=== PATIENT | male | born 1955 | race Caucasian/White ===

== ENCOUNTER 2016-09-28 15:53 | Inpatient (IN) | payer OTHER ==
[~2016-09-28] VITALS: Ht 182.9 cm; Wt 107.7 kg
[~2016-09-28 15:53] MED LIST: /MOXI40TA OR; CELE100C OR; IBUPROFEN/TYLENOL; LISI10TA4 OR; ZETI10TA OR
[2016-09-28] MEDS ORDERED: ONDANSETRON 4MG/2ML VIAL (J2405) As Ordered ONE (16:41)
[2016-09-28] MEDS ORDERED: MORPHINE 4 MG/ML 1ML SYRINGE As Ordered ONE ×3 (16:41→18:38)
[2016-09-28 16:52] LABS: BASO % 0.3 % (0.0-1.0); EOS % 0.4 % (0.0-3.0); LARGE UNSTAINED CELL # 0.1 K/mm3 (0.0-0.4); LARGE UNSTAINED CELL % 1.1 % (0.0-4.0); LYMPH % 7.8 % (24.0-44.0); MEAN CORPUSCULAR HEMOGLOBIN 32.5 pg (27.0-33.0); MEAN CORPUSCULAR HGB CONC 35.5 g/dl (32.0-36.5); MEAN CORPUSCULAR VOLUME 91.6 fl (80.0-96.0); MONO # 0.5 K/mm3 (0.0-0.8); MONO % 4.3 % (0.0-5.0); NEUTROPHILS # 10.6 K/mm3 (1.8-7.7); NEUTROPHILS % 86.2 % (36.0-66.0); PLATELET COUNT, AUTOMATED 265 k/mm3 (150-450); RED CELL DISTRIBUTION WIDTH 12.1 % (11.5-14.5); WHITE BLOOD COUNT 12.3 K/mm3 (4.0-10.0)
[2016-09-28 17:04] LABS: ANION GAP 8 MEQ/L (8-16); BLOOD UREA NITROGEN 16 MG/DL (7-18); CALCIUM LEVEL 9.6 MG/DL (8.8-10.2); CARBON DIOXIDE LEVEL 26 MEQ/L (21-32); CHLORIDE LEVEL 108 MEQ/L (98-107); CREATININE FOR GFR 1.04 MG/DL (0.70-1.30); GLOMERULAR FILTRATION RATE > 60.0 (>49); GLUCOSE, FASTING 132 MG/DL (80-110); POTASSIUM SERUM 4.2 MEQ/L (3.5-5.1); SODIUM LEVEL 142 MEQ/L (136-145)
--- NOTE | 2016-09-28 17:11 | REP ---
Clinical: Trauma. Rule out pneumothorax. Technique: Single portable semiupright view. Findings: Basilar atelectasis cannot be excluded. No pneumothorax identified. Mediastinum and cardiac silhouette within normal limits. Skeletal structures are grossly intact. Impression: Cannot exclude basilar atelectasis. No obvious pneumothorax. Signed by Jake Ramírez MD 09/28/2016 05:04 P
[2016-09-28] MEDS ORDERED: ISOVUE-370 76% 100ML VIAL (Q9967) As Ordered ONE (17:15)
[2016-09-28] MEDS ORDERED: BISACODYL 10 MG SUPP PR PRN (18:30)
[2016-09-28] MEDS ORDERED: NORCO, ANEXSIA 5/325MG TABLET (HYDROcodone/ACETAMINOPHEN) PO PRN (18:30)
[2016-09-28] MEDS ORDERED: PERCOCET 5MG/325MG TAB PO PRN (18:30)
[2016-09-28] MEDS ORDERED: ACETAMINOPHEN TAB 650MG DOSE (2X325MG) PO PRN (18:30)
[2016-09-28] MEDS ORDERED: LEVALBUTEROL 1.25 MG/0.5 ML CONCENTRATE NEB NEB PRN (18:30)
[2016-09-28] MEDS ORDERED: ONDANSETRON 4MG/2ML VIAL (J2405) IV PRN ×2 (18:30→20:30)
[2016-09-28 18:49] LABS: ABG BASE EXCESS -1.1 (-2.0-2.0); ABG PARTIAL PRESSURE CO2 41.3 mmHg (35.0-45.0); ABG PARTIAL PRESSURE O2 88.6 mmHg (75.0-100.0); ABG STANDARD HCO3 23.6 MEQ/L (22.0-26.0); ABG TOTAL CO2 25.3 MEQ/L (23.0-31.0); ABG pH (ARTERIAL) 7.382 UNITS (7.350-7.450)
[2016-09-28] MEDS ORDERED: AMLO2.5T PO (18:51)
[2016-09-28] MEDS ORDERED: VITMTA PO (18:51)
[2016-09-28] MEDS ORDERED: PAXI20TA3 PO (18:51)
[2016-09-28] MEDS ORDERED: VITA500T88 PO (18:51)
[2016-09-28] MEDS ORDERED: VITA100066 PO (18:51)
[2016-09-28] MEDS ORDERED: VITA10002 PO (18:51)
[2016-09-28] MEDS ORDERED: ZETI10TA2 PO (18:51)
[2016-09-28] MEDS ORDERED: PRAV20TA2 PO (18:51)
--- NOTE | 2016-09-28 19:59 | EDDOCDS ---
Nurse's Notes [facility] Name: Alvino Chawla Age: 61 yrs Sex: Male : 1955 Arrival Date: 09/28/2016 Time: 15:53 Bed 2 Private MD: Leandro Tyson MD Diagnosis: Fall from snow-skis;Multiple fractures of ribs, left side- - Presentation: 09/28 16:01 Presenting complaint: states: [facility] [place] [facility] [place] and landed on left rs3 side. reports of Left upper chest pain. pain with breathing. Adult Sepsis Screening: The patient does not have new or worsening altered mentation. Patient's respiratory rate is less than 22. Systolic blood pressure is greater than 100. Patient has a qSOFA score of 0- Negative Sepsis Screen. Suicide/Homicide risk assessment- the patient denies having any suicidal and/or homicidal ideations and does not present with any other emotional, behavioral or mental health complaints. 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 Transition of care: patient was not received from another setting of care. 16:01 Acuity: YANDEL Level 3 rs3 16:01 Method Of Arrival: Wheelchair rs3 Triage Assessment: 16:05 General: Appears in no apparent distress. Pain: Location: anterior aspect of left upper rs3 chest. HIV screening NA for this visit Offered previously. Historical: - Allergies: no known allergies; - Home Meds: 1. Pravachol 20 mg Oral tab 1 tab once daily 2. lisinopril 10 mg Oral tab 1 tab once daily 3. Paxil Oral 1 tab once daily 4. Zetia Oral 1 tab once daily - PMHx: Hypercholesterolemia; Hypertension; - PSHx: back surgery; Hernia repair; Appendectomy; - The history from nurses notes was reviewed: and I agree with what is documented. - Social history: Smoking status: Patient states was never smoker of tobacco. No barriers to communication noted, The patient speaks fluent Kyrgyz. - : The pt / caregiver states he / she is not on anticoagulants. Home medication list is obtained from the patient. - Hospitalizations: : No recent hospitalization is reported. - Exposure Risk Screening:: None identified. - Immunization history:: All immunizations up-to-date. - Family history: Not pertinent. - Social history:: the patient is a non-smoker, the patient drinks alcohol. Screenin:40 Screening information is obtained from the patient. Fall risk: No risks identified. ck1 Assistance ADL's: requires no assistance with activities of daily living. Abuse/DV Screen: The patient / caregiver reports he/she is: not in a situation that causes fear, pain or injury. Nutritional screening: No deficits noted. home support is adequate. 16:52 Advance Directives: Currently, there is no health care proxy. ck1 Assessment: 16:39 General: Appears uncomfortable, Behavior is appropriate for age, cooperative. Pain: ck1 Location: anterior aspect of left upper chest Pain currently is 8 out of 10 on a pain scale. Neurological: Level of Consciousness is awake, alert, obeys commands, Oriented to person, place, time. Respiratory: Respiratory effort is unlabored, Respiratory pattern is regular, symmetrical. GI: Reports nausea. Derm: Skin is intact, is healthy with good turgor, Skin is diaphoretic, Skin is normal. Musculoskeletal: Circulation, motion, and sensation intact Range of motion intact in all extremities. 17:13 General: Appears in no apparent distress, comfortable, Behavior is appropriate for age, ck1 cooperative. Pain: Location: anterior aspect of left upper chest Pain currently is 3 out of 10 on a pain scale. Neurological: Level of Consciousness is awake, alert, obeys commands, Oriented to person, place, time. Cardiovascular: Rhythm is sinus rhythm. Respiratory: Respiratory effort is unlabored, Respiratory pattern is regular, symmetrical. GI: No deficits noted. Derm: Skin is pink, warm & dry. 17:50 General: Appears in no apparent distress, comfortable, Behavior is appropriate for age, ck1 cooperative. Pain: Location: anterior aspect of left upper chest Pain currently is 3 out of 10 on a pain scale. Neurological: Level of Consciousness is awake, alert, obeys commands, Oriented to person, place, time. Cardiovascular: Rhythm is sinus rhythm. Respiratory: Respiratory effort is unlabored, Respiratory pattern is regular, symmetrical. GI: No deficits noted. Derm: Skin is pink, warm & dry. Musculoskeletal: Circulation, motion, and sensation intact Range of motion intact in all extremities. 18:50 General: Appears in no apparent distress, comfortable, Behavior is appropriate for age, ck1 cooperative. Pain: Location: anterior aspect of left upper chest Pain currently is 5 out of 10 on a pain scale. Neurological: Level of Consciousness is awake, alert, obeys commands, Oriented to person, place, time. Respiratory: Respiratory effort is unlabored, Respiratory pattern is regular, symmetrical. GI: No deficits noted. Derm: Skin is pink, warm & dry. 19:35 General: Appears uncomfortable, well developed, well nourished, Behavior is appropriate jp6 for age, cooperative, Reports left chest pain, pain with deep breathing. Pain: Location: left lateral anterior chest Pain currently is 4 out of 10 on a pain scale. Neurological: Level of Consciousness is awake, alert, Oriented to person, place, time. EENT: No deficits noted. Cardiovascular: Capillary refill < 3 seconds Heart tones S1 S2 present Rhythm is sinus rhythm No ectopy. Respiratory: Airway is patent Respiratory effort is even, unlabored, shallow, Respiratory pattern is regular, symmetrical, Breath sounds are clear bilaterally. GI: No deficits noted. : No deficits noted. Derm: Skin is intact, Skin is dry, Skin is pale, Skin temperature is warm. Musculoskeletal: Circulation, motion, and sensation intact Capillary refill < 3 seconds Range of motion intact in all extremities. Vital Signs: 15:54 BP 155 / 104; Pulse 113; Resp 18 S; Temp 97.0; Pulse Ox 95% on R/A; Weight 102.06 kg dd6 (R); Height 6 ft. 0 in. (182.88 cm) (R); 16:33 BP 145 / 94 (auto/); ck1 16:34 Pulse 88 MON; Pulse Ox 93% ; ck1 16:48 BP 153 / 99 (auto/); ck1 16:48 Pulse 90 MON; Pulse Ox 92% ; ck1 17:03 BP 157 / 101 (auto/); ck1 17:04 Pulse 92 MON; Pulse Ox 95% ; ck1 17:10 Pulse 96 MON; Pulse Ox 94% ; ck1 17:11 BP 155 / 102 (auto/); ck1 17:12 BP 155 / 102; Pulse 90; Resp 18; Temp 98.2(TE); Pulse Ox 95% on 2 lpm NC; Pain 3/10; ck1 17:18 BP 154 / 100 (auto/); ck1 17:18 Pulse 92 MON; Pulse Ox 94% ; ck1 17:33 BP 187 / 108 (auto/); ck1 17:34 Pulse 80 MON; Pulse Ox 92% ; ck1 17:48 BP 157 / 94 (auto/); ck1 17:48 Pulse 86 MON; Pulse Ox 96% ; ck1 17:49 BP 157 / 94; Pulse 88; Resp 18; Temp 98.8(TE); Pulse Ox 95% on 2 lpm NC; Pain 3/10; ck1 18:03 BP 138 / 99 (auto/); ck1 18:03 Pulse 96 MON; Pulse Ox 96% ; ck1 18:18 BP 149 / 100 (auto/); ck1 18:18 Pulse 82 MON; Pulse Ox 96% ; ck1 18:33 BP 160 / 89 (auto/); ck1 18:34 Pulse 90 MON; Pulse Ox 95% ; ck1 18:48 BP 131 / 85 (auto/); ck1 18:49 Pulse 96 MON; Pulse Ox 94% ; ck1 19:18 BP 155 / 101 (auto/); jp6 19:19 Pulse 86 MON; Pulse Ox 94% ; jp6 19:19 BP 151 / 96; Pulse 84; Resp 18; Temp 98.9(TE); Pulse Ox 95% on 2 lpm NC; Pain 4/10; jp6 15:54 Body Mass Index 30.52 (102.06 kg, 182.88 cm) dd6 Vitals: 15:54 Log In Time: September 28, 2016 at 15:52. dd6 ED Course: 15:54 Patient visited by Jay Jackson PCA. dd6 15:54 Leandro Tyson is Private Physician. dd6 15:54 Patient moved to Waiting dd6 15:55 Patient moved to Pre RCE dd6 16:03 Triage Initiated rs3 16:07 Sugey Valles,RN is Primary Nurse. dls 16:07 Chloe Bello,RN is Primary Nurse. dls 16:07 Patient moved to 9 dls 16:10 Patient moved to 8 dy 16:19 Patient visited by Chloe Bello,ANA. ck1 16:24 Hany Garcia MD is Attending Physician. pc 16:35 Patient visited by Hany Garcia MD. pc 16:38 MED Profile Sent. ck1 16:38 CBC with Diff Sent. ck1 16:39 The patient / caregiver is instructed regarding the plan of care and ED course. ck1 16:39 Inserted saline lock: 20 gauge in right hand and blood collected. The patient tolerated ck1 the procedure well. 16:52 O2 via nasal cannula \T\ 2L/min. ck1 16:53 Patient visited by Chloe Bello RN. ck1 17:10 [facility] Payment Agreement was scanned into [employer] and attached to record. zo 17:37 Patient visited by Chloe Bello,ANA. ck1 17:52 Chest, 1 View Returned. EDMS 18:02 Patient visited by Chloe Bello,ANA. ck1 18:33 Patient visited by Chloe Bello RN. ck1 18:44 ARTERIAL BLOOD GAS Sent. rs5 18:50 Patient visited by Chloe Bello RN. ck1 18:52 Primary Nurse role handed off by Chloe Bello RN ck1 18:54 Primary Nurse role handed off by Sugey Valles RN jp6 18:54 Yoselin Anderson RN is Primary Nurse. jp6 18:55 Germán Santiago MD is Hospitalizing Provider. pc 19:19 moved to room C2. jp6 19:19 cafeteria monitor on. Pulse ox on. NIBP on. jp6 19:25 Patient [facility] to [facility] Administered Medications: 16:51 Drug: Ondansetron 4 mg [ondansetron HCl 2 mg/mL intravenous solution (2 mL)] Route: ck1 IVP; Site: right hand; 16:52 Drug: NS 0.9% 1000 ml [sodium chloride 0.9 % intravenous solution] Route: IV; Rate: 100 ck1 mL/hr; Site: right hand; 16:52 Drug: morphine 4 mg [morphine 4 mg/mL intravenous cartridge (1 mL)] Route: IVP; Site: [facility] right hand; 17:12 Follow up: BP 155 / 102; Pulse 90 bpm; Resp 18 bpm; Temp 98.2 Temporal; Pulse Ox 95% 2 ck1 lpm Nasal Cannula; Pain 3/10 Adult; Response: Confirmed pt not driving.; No Adverse Reaction; Pain is decreased 17:30 Drug: morphine 4 mg [morphine 4 mg/mL intravenous cartridge (1 mL)] Route: IVP; Site: [facility] right hand; 17:49 Follow up: BP 157 / 94; Pulse 88 bpm; Resp 18 bpm; Temp 98.8 Temporal; Pulse Ox 95% 2 ck1 lpm Nasal Cannula; Pain 3/10 Adult; Response: Confirmed pt not driving.; No Adverse Reaction; Pain is decreased 18:41 Drug: morphine 4 mg [morphine 4 mg/mL intravenous cartridge (1 mL)] Route: IVP; Site: ck1 right hand; RT: 18:44 ABG's drawn from left radial artery pressure held for 5 minutes no bleeding noted rs5 pressure bandage applied specimen sent pt. tolerated well. Order Results: Lab Order: CBC with Diff; SPEC'M 09/28/16 16:37 Test: WHITE BLOOD COUNT; Value: 12.3; Range: 4.0-10.0; Abnormal: Above high normal; Units: K/mm3; Status: F Test: RED BLOOD COUNT; Value: 4.75; Range: 4.30-6.10; Units: M/mm3; Status: F Test: HEMOGLOBIN; Value: 15.4; Range: 14.0-18.0; Units: g/dl; Status: F Test: HEMATOCRIT; Value: 43.5; Range: 42.0-52.0; Units: %; Status: F Test: MEAN CORPUSCULAR VOLUME; Value: 91.6; Range: 80.0-96.0; Units: fl; Status: F Test: MEAN CORPUSCULAR HEMOGLOBIN; Value: 32.5; Range: 27.0-33.0; Units: pg; Status: F Test: MEAN CORPUSCULAR HGB CONC; Value: 35.5; Range: 32.0-36.5; Units: g/dl; Status: F Test: RED CELL DISTRIBUTION WIDTH; Value: 12.1; Range: 11.5-14.5; Units: %; Status: F Test: PLATELET COUNT, AUTOMATED; Value: 265; Range: 150-450; Units: k/mm3; Status: F Test: NEUTROPHILS %; Value: 86.2; Range: 36.0-66.0; Abnormal: Above high normal; Units: %; Status: F Test: LYMPH %; Value: 7.8; Range: 24.0-44.0; Abnormal: Below low normal; Units: %; Status: F Test: MONO %; Value: 4.3; Range: 0.0-5.0; Units: %; Status: F Test: EOS %; Value: 0.4; Range: 0.0-3.0; Units: %; Status: F Test: BASO %; Value: 0.3; Range: 0.0-1.0; Units: %; Status: F Test: LARGE UNSTAINED CELL %; Value: 1.1; Range: 0.0-4.0; Units: %; Status: F Test: NEUTROPHILS #; Value: 10.6; Range: 1.8-7.7; Abnormal: Above high normal; Units: K/mm3; Status: F Test: LYMPH #; Value: 1.0; Range: 1.5-4.5; Abnormal: Below low normal; Units: K/mm3; Status: F Test: MONO #; Value: 0.5; Range: 0.0-0.8; Units: K/mm3; Status: F Test: EOS #; Value: 0.0; Range: 0.0-0.50; Units: K/mm3; Status: F Test: BASO #; Value: 0.0; Range: 0.0-0.2; Units: K/mm3; Status: F Test: LARGE UNSTAINED CELL #; Value: 0.1; Range: 0.0-0.4; Units: K/mm3; Status: F Lab Order: [facility]; [facility] 09/28/16 16:37 Test: GLUCOSE, FASTING; Value: 132; Range: 80-110; Abnormal: Above high normal; Units: MG/DL; Status: F Test: BLOOD UREA NITROGEN; Value: 16; Range: 7-18; Units: MG/DL; Status: F Test: CREATININE FOR GFR; Value: 1.04; Range: 0.70-1.30; Units: MG/DL; Status: F Test: GLOMERULAR FILTRATION RATE; Value: > 60.0; Range: >49; Status: F Test: SODIUM LEVEL; Value: 142; Range: 136-145; Units: MEQ/L; Status: F Test: POTASSIUM SERUM; Value: 4.2; Range: 3.5-5.1; Units: MEQ/L; Status: F Test: CHLORIDE LEVEL; Value: 108; Range: 98-107; Abnormal: Above high normal; Units: MEQ/L; Status: F Test: CARBON DIOXIDE LEVEL; Value: 26; Range: 21-32; Units: MEQ/L; Status: F Test: ANION GAP; Value: 8; Range: 8-16; Units: MEQ/L; Status: F Test: CALCIUM LEVEL; Value: 9.6; Range: 8.8-10.2; Units: MG/DL; Status: F Test Note: ; Units are mL/min/1.73 m2 Chronic Kidney Disease Staging per NKF: Stage I & II GFR >=60 Normal to Mildly Decreased Stage III GFR 30-59 Moderately Decreased Stage IV GFR 15-29 Severely Decreased Stage V GFR <15 Very Little GFR Left ESRD GFR <15 on REHAB SERVICES AIDE Lab Order: ARTERIAL BLOOD GAS; [facility] 09/28/16 18:39 Test: ABG pH (ARTERIAL); Value: 7.382; Range: 7.350-7.450; Units: UNITS; Status: F Test: ABG PARTIAL PRESSURE CO2; Value: 41.3; Range: 35.0-45.0; Units: mmHg; Status: F Test: ABG PARTIAL PRESSURE O2; Value: 88.6; Range: 75.0-100.0; Units: mmHg; Status: F Test: ABG TOTAL CO2; Value: 25.3; Range: 23.0-31.0; Units: MEQ/L; Status: F Test: ABG HCO3; Value: 24.0; Range: 22.0-26.0; Units: MEQ/L; Status: F Test: ABG BASE EXCESS; Value: -1.1; Range: -2.0-2.0; Status: F Test: ABG STANDARD HCO3; Value: 23.6; Range: 22.0-26.0; Units: MEQ/L; Status: F Test: ABG O2 SATURATION; Value: 96.6; Range: 95.0-99.0; Units: %; Status: F Radiology Order: Chest, 1 View Test: Chest, 1 View REASON FOR EXAMINATION: trauma, r/o PTX; Clinical: Trauma. Rule out pneumothorax.; ; Technique: Single portable semiupright view.; ; Findings:; Basilar atelectasis cannot be excluded. No pneumothorax identified. Mediastinum; and cardiac silhouette within normal limits. Skeletal structures are grossly; intact.; ; Impression:; Cannot exclude basilar atelectasis.; No obvious pneumothorax.; ; ; Signed by; Jake Ramírez MD 09/28/2016 05:04 P; Outcome: 17:37 CT Study completed. ck1 18:56 Decision to Hospitalize by Provider. pc 19:59 Patient left the ED. [facility] Signatures: Dispatcher [employer] EDMS Hany Garcia MD MD pc Scott, Debra RN RN Negrito Blount, RN RN Chloe Alberts,RN RN ck1 Jj Lindsay Daniell, BUSINESS ANALYTICS INTERN BUSINESS ANALYTICS INTERN dd6 Mey KellyRN RN rs3 Maritza Chatman RN RN sls1 Zana Muñoz,RT RT rs5 Yoselin Anderson,RN RN jp6 MTDD
--- NOTE | 2016-09-28 19:59 | EDDOCDS ---
Physician Documentation [facility] Name: Alvino Chawla Age: 61 yrs Sex: Male : 1955 Arrival Date: 09/28/2016 Time: 15:53 Bed 2 Private MD: Leandro Tyson MD Disposition: 09/28 18:53 Critical Care: Critical care not applicable. Disposition: 09/28/16 18:56 Hospitalization ordered by Germán Santiago for Inpatient Admission. Preliminary diagnosis are Fall from snow-skis, Multiple fractures of ribs, left side - 2nd - 6th. - Bed requested for PCU. - Status is Inpatient Admission. sls1 - Condition is Stable. - Problem is new. - Symptoms have improved. HPI: 16:35 This 61 yrs old Male presents to ER via Wheelchair with complaints of Chest pc Wall Injury. 16:35 The history is obtained from the patient, the patient's spouse. He is [employer] at [employer] and fell about 3.5 hours ago, mid-run, landing on his left arm and side, and he says he felt his ribs break. He was able to get up off the slope and ski down to the base. His drove him here, as he did not want to seek care at any of the facilities he passed on his way. He complains of pain in his left lower chest, worse with torso movement, complains of splinting respirations. He denies any abdominal pain, denies extremity pain and says he has been putting his left shoulder and arm "through all the motions and it doesn't hurt". At their worst, the symptoms were a 10 out of 10. In the emergency department, the symptoms are a 10 out of 10. The patient has not experienced similar symptoms in the past. The patient has been recently seen by their primary care provider, for a routine, regularly scheduled appointment. Historical: - Allergies: no known allergies; - Home Meds: 1. Pravachol 20 mg Oral tab 1 tab once daily 2. lisinopril 10 mg Oral tab 1 tab once daily 3. Paxil Oral 1 tab once daily 4. Zetia Oral 1 tab once daily - PMHx: Hypercholesterolemia; Hypertension; - PSHx: back surgery; Hernia repair; Appendectomy; - The history from nurses notes was reviewed: and I agree with what is documented. - Social history: Smoking status: Patient states was never smoker of tobacco. No barriers to communication noted, The patient speaks fluent Cuban. - : The pt / caregiver states he / she is not on anticoagulants. Home medication list is obtained from the patient. - Hospitalizations: : No recent hospitalization is reported. - Exposure Risk Screening:: None identified. - Immunization history:: All immunizations up-to-date. - Family history: Not pertinent. - Social history:: the patient is a non-smoker, the patient drinks alcohol. ROS: 16:35 All systems are negative except as listed. pc Exam: 16:35 General Appearance: alert, the patient is in moderate distress. pc 16:35 EENT: normal eye inspection, ears, nose and throat normal, pharynx normal, mucous membranes moist 16:35 Neck: The exam reveals no acute abnormalities. ROM is normal and painless. No nuchal rigidity is noted.. 16:35 Respiratory: no respiratory distress, normal breath sounds, Respirations/effort: splinting, Chest tenderness in the left lateral anterior chest, is associated with movement of trunk, respirations, palpation. 16:35 CVS: regular rhythm, normal S1 and S2, no murmurs, strong peripheral pulses, normal capillary refill, the patient is tachycardic, at 110 bpm. 16:35 Abdomen: soft, no organomegaly, normal bowel sounds, mild tenderness in the left upper quadrant, without rebound, voluntary guarding is not appreciated, involuntary guarding is not appreciated. 16:35 Back: normal inspection. 16:35 Skin: skin color is normal, warm, dry. 16:35 Extremities: The extremities have a grossly normal appearance, are non-tender, without acute ROM abnormalities. 16:35 Neuro: oriented x 3, cranial nerves normal as tested, no motor deficits, no sensory deficits. 16:35 Psych: normal mood. Vital Signs: 15:54 BP 155 / 104; Pulse 113; Resp 18 S; Temp 97.0; Pulse Ox 95% on R/A; Weight 102.06 kg / dd6 225 lbs (R); Height 6 ft. 0 in. (182.88 cm) (R); 16:33 BP 145 / 94 (auto/); ck1 16:34 Pulse 88 MON; Pulse Ox 93% ; ck1 16:48 BP 153 / 99 (auto/); ck1 16:48 Pulse 90 MON; Pulse Ox 92% ; ck1 17:03 BP 157 / 101 (auto/); ck1 17:04 Pulse 92 MON; Pulse Ox 95% ; ck1 17:10 Pulse 96 MON; Pulse Ox 94% ; ck1 17:11 BP 155 / 102 (auto/); ck1 17:12 BP 155 / 102; Pulse 90; Resp 18; Temp 98.2(TE); Pulse Ox 95% on 2 lpm NC; Pain 3/10; ck1 17:18 BP 154 / 100 (auto/); ck1 17:18 Pulse 92 MON; Pulse Ox 94% ; ck1 17:33 BP 187 / 108 (auto/); ck1 17:34 Pulse 80 MON; Pulse Ox 92% ; ck1 17:48 BP 157 / 94 (auto/); ck1 17:48 Pulse 86 MON; Pulse Ox 96% ; ck1 17:49 BP 157 / 94; Pulse 88; Resp 18; Temp 98.8(TE); Pulse Ox 95% on 2 lpm NC; Pain 3/10; ck1 18:03 BP 138 / 99 (auto/); ck1 18:03 Pulse 96 MON; Pulse Ox 96% ; ck1 18:18 BP 149 / 100 (auto/); ck1 18:18 Pulse 82 MON; Pulse Ox 96% ; ck1 18:33 BP 160 / 89 (auto/); ck1 18:34 Pulse 90 MON; Pulse Ox 95% ; ck1 18:48 BP 131 / 85 (auto/); ck1 18:49 Pulse 96 MON; Pulse Ox 94% ; ck1 19:18 BP 155 / 101 (auto/); jp6 19:19 Pulse 86 MON; Pulse Ox 94% ; jp6 19:19 BP 151 / 96; Pulse 84; Resp 18; Temp 98.9(TE); Pulse Ox 95% on 2 lpm NC; Pain 4/10; jp6 15:54 Body Mass Index 30.52 (102.06 kg, 182.88 cm) dd6 MDM: 16:33 IV Saline Lock ordered. pc 16:33 NS 0.9% 1000 ml IV at 100 mL/hr continuous ordered. pc 16:33 morphine 4 mg IVP every 30 minutes; Document pain score/vitals after each dose (Hold if pc SBP < 90mmHg) x2 ordered. 16:33 Ondansetron 4 mg IVP once ordered. pc 16:34 CBC with Diff Ordered. EDMS 16:35 MED Profile Ordered. EDMS 16:35 NOTHING BY MOUTH+DIET ordered. EDMS 16:35 CT Chest With Contrast Ordered. EDMS 16:35 CT ABD & PELVIS: IV Contrast Only Ordered. EDMS 16:35 Chest, 1 View Ordered. EDMS 16:35 Differential Diagnosis: Fall, left chest trauma r/o rib fractures, PTX, splenic injury. pc Plan: labs, meds, imaging. 17:05 CBC with Diff Reviewed. pc 17:05 MED Profile Reviewed. pc 17:09 Financial registration complete. zo 17:10 [facility] Payment Agreement was scanned into [employer] and attached to record. zo 18:34 Admission / Observation Status ordered. EDMS 18:34 REGULAR DIET ordered. EDMS 18:35 ARTERIAL BLOOD GAS Ordered. EDMS 18:36 morphine 4 mg IVP once ordered. pc 18:36 Chest, 2 view PA, Lat Ordered. EDMS 18:37 Chest, 2 view PA, Lat Ordered. EDMS 18:37 Chest, 2 view PA, Lat Ordered. EDMS 18:37 Chest, 2 view PA, Lat Ordered. EDMS 18:37 Chest, 2 view PA, Lat Ordered. EDMS 18:37 Chest, 2 view PA, Lat Ordered. EDMS 18:37 Chest, 2 view PA, Lat Ordered. EDMS 18:38 Chest, 2 view PA, Lat Ordered. EDMS 18:38 Chest, 2 view PA, Lat Ordered. EDMS 18:38 Chest, 2 view PA, Lat Ordered. EDMS 18:38 BED REQUEST+ADM ordered. EDMS 18:53 Data reviewed: old medical records, vital signs, nurses notes, lab test results, all pc radiology studies and available results. Test interpretation: LAB - all labs as ordered have been reviewed, interpreted and considered in the overall management of the clinical presentation; X-RAY - interpreted by Radiologist and personally reviewed, 1 view chest no acute disease, interpreted by Radiologist and personally reviewed, Abdomen/Pelvis CT; no acute disease, Chest CT; nondisplaced left 2-6 ribs, else nad. The patient has been re-examined and re-evaluated. The patient's symptoms have mildly improved after treatment. Physician consultation: Dr. Germán Santiago MD regarding admission. Disposition: The historical points, examination findings, and any diagnostic results supporting the provided diagnosis, were discussed with the patient or legal guardian. The need for further work-up and/or treatment in the hospital was explained. 19:32 BASIC METABOLIC PROFILE Ordered. EDMS 19:33 CBC WITH DIFFERENTIAL Ordered. EDMS 19:33 ARTERIAL BLOOD GAS Ordered. EDMS Administered Medications: 16:51 Drug: Ondansetron 4 mg [ondansetron HCl 2 mg/mL intravenous solution (2 mL)] Route: ck1 IVP; Site: right hand; 16:52 Drug: NS 0.9% 1000 ml [sodium chloride 0.9 % intravenous solution] Route: IV; Rate: 100 ck1 mL/hr; Site: right hand; 16:52 Drug: morphine 4 mg [morphine 4 mg/mL intravenous cartridge (1 mL)] Route: IVP; Site: [facility] right hand; 17:12 Follow up: BP 155 / 102; Pulse 90 bpm; Resp 18 bpm; Temp 98.2 Temporal; Pulse Ox 95% 2 ck1 lpm Nasal Cannula; Pain 3/10 Adult; Response: Confirmed pt not driving.; No Adverse Reaction; Pain is decreased 17:30 Drug: morphine 4 mg [morphine 4 mg/mL intravenous cartridge (1 mL)] Route: IVP; Site: [facility] right hand; 17:49 Follow up: BP 157 / 94; Pulse 88 bpm; Resp 18 bpm; Temp 98.8 Temporal; Pulse Ox 95% 2 ck1 lpm Nasal Cannula; Pain 3/10 Adult; Response: Confirmed pt not driving.; No Adverse Reaction; Pain is decreased 18:41 Drug: morphine 4 mg [morphine 4 mg/mL intravenous cartridge (1 mL)] Route: IVP; Site: [facility] right [facility]; Signatures: Dispatcher [employer] EDMS Hany Garcia MD MD pc Quesen[place] HC, Deborah, RN RN daq Olin, Zoeann zo Soosairaj, Rosemary, RN RN rs3 Maritza Chatman RN RN sls1 Chloe Bello RN ck1 The chart was reviewed and I authenticate all verbal orders and agree with the evaluation and treatment provided.Attachments: 17:10 [facility] Payment Agreement zo MTDD
[2016-09-28] MEDS: LEVALBUTEROL 1.25 MG/0.5 ML CONCENTRATE NEB NEB SCH (20:00)
[2016-09-28] MEDS: FENTANYL/BUPIVACAINE/NACL CADD 250 ML EPIDURAL SCH (20:30)
[2016-09-28] MEDS ORDERED: EPIDURAL/PCA KEYS XX PRN (20:30)
[2016-09-28] MEDS ORDERED: diphenhydrAMINE INJ 50MG/ML VIAL (J1200) IV PRN (20:30)
[2016-09-28] MEDS ORDERED: NALOXONE INJ 0.4 MG/1 ML VIAL (J2310) IV PRN (20:30)
[2016-09-28] MEDS ORDERED: METOCLOPRAMIDE INJ 10MG/2ML VIAL (J2765) IV PRN (20:30)
[2016-09-28] MEDS ORDERED: WALLBOXKEY XX PRN (20:30)
[2016-09-28] MEDS ORDERED: MIDAZOLAM INJ 2 MG/2 ML VIAL (J2250) As Ordered ONE (20:35)
[2016-09-28] MEDS ORDERED: fentaNYL 100 MCG/2 ML INJECTION (J3010) As Ordered ONE (20:35)
[2016-09-28] MEDS ORDERED: FENTANYL 2MCG/ML BUPIVACAINE 0.0625% NACL 250ML CADD As Ordered ONE (20:36)
[2016-09-28] MEDS: MIDAZOLAM INJ 2 MG/2 ML VIAL (J2250) IV PRN (20:40)
[2016-09-28] MEDS ORDERED: fentaNYL 100 MCG/2 ML INJECTION (J3010) IV PRN (21:30)
[2016-09-28 21:40] VITALS: BP 126/79
[2016-09-28 22:10] VITALS: BP 121/81
[2016-09-28 22:40] VITALS: BP 128/78
[2016-09-28] MEDS: HEPARIN SOD (PORCINE) 5000 UNITS/ML VIAL SC SCH (22:40)
[2016-09-28] MEDS: DOCUSATE SODIUM 100 MG CAP PO SCH (22:41)
[2016-09-28] MEDS: KETOROLAC 30 MG/ML VIAL (J1885) IV SCH (22:42)
[2016-09-28] MEDS: KCL 20MEQ IN D5/NS 1000ML 1,000 ML IV SCH (22:57)
[2016-09-29] VITALS (8 sets, daily range): BP systolic 11–121; BP diastolic 60–72; PULSE 59–64
[2016-09-29] MEDS: LEVALBUTEROL 1.25 MG/0.5 ML CONCENTRATE NEB NEB SCH ×4 (01:37→19:50)
[2016-09-29 05:26] LABS: BASO % 0.3 % (0.0-1.0); EOS # 0.2 K/mm3 (0.0-0.50); EOS % 2.1 % (0.0-3.0); LARGE UNSTAINED CELL # 0.2 K/mm3 (0.0-0.4); LARGE UNSTAINED CELL % 2.4 % (0.0-4.0); LYMPH # 1.2 K/mm3 (1.5-4.5); LYMPH % 17.7 % (24.0-44.0); MEAN CORPUSCULAR HGB CONC 34.7 g/dl (32.0-36.5); MEAN CORPUSCULAR VOLUME 92.3 fl (80.0-96.0); MONO # 0.6 K/mm3 (0.0-0.8); NEUTROPHILS # 4.8 K/mm3 (1.8-7.7); NEUTROPHILS % 69.5 % (36.0-66.0); PLATELET COUNT, AUTOMATED 204 k/mm3 (150-450); RED CELL DISTRIBUTION WIDTH 12.2 % (11.5-14.5); WHITE BLOOD COUNT 6.9 K/mm3 (4.0-10.0)
[2016-09-29] MEDS: KETOROLAC 30 MG/ML VIAL (J1885) IV SCH ×4 (05:26→23:11)
[2016-09-29 05:40] LABS: ANION GAP 7 MEQ/L (8-16); BLOOD UREA NITROGEN 16 MG/DL (7-18); CALCIUM LEVEL 8.3 MG/DL (8.8-10.2); CARBON DIOXIDE LEVEL 28 MEQ/L (21-32); CHLORIDE LEVEL 109 MEQ/L (98-107); CREATININE FOR GFR 1.01 MG/DL (0.70-1.30); GLOMERULAR FILTRATION RATE > 60.0 (>49); GLUCOSE, FASTING 119 MG/DL (80-110); SODIUM LEVEL 144 MEQ/L (136-145)
[2016-09-29 05:54] LABS: ABG BASE EXCESS -1.6 (-2.0-2.0); ABG HCO3 24.2 MEQ/L (22.0-26.0); ABG PARTIAL PRESSURE CO2 44.8 mmHg (35.0-45.0); ABG PARTIAL PRESSURE O2 102.4 mmHg (75.0-100.0); ABG STANDARD HCO3 23.1 MEQ/L (22.0-26.0); ABG TOTAL CO2 25.6 MEQ/L (23.0-31.0)
[2016-09-29] MEDS: KCL 20MEQ IN D5/NS 1000ML 1,000 ML IV SCH (07:50)
--- NOTE | 2016-09-29 08:21 | REP ---
Clinical: Trauma. Technique: Axial contrast enhanced images from the thoracic inlet to the upper abdomen using 100 ml Isovue 370 intravenous contrast material with coronal and sagittal re-formations. Comparison: None. Findings: Nondisplaced left anterolateral second through fifth rib fractures are identified along with lingular and bibasilar atelectasis/contusions. Scattered chronic fibroatelectatic changes are also suggested. No significant pleural effusion. No obvious, definite pneumothorax. The mediastinum suggests mild cardiomegaly with only minimal atherosclerotic changes to the thoracic aorta and coronary arteries and no evidence for pericardial effusion or mediastinal trauma/hematoma. Thoracic aorta is normal caliber without aneurysm or dissection. Pulmonary vasculature appears grossly normal. Thoracic spine demonstrates degenerative changes with normal alignment and no evidence for acute fracture / compression injury or subluxation. Sternum a appears intact. The bilateral shoulders appear intact. Limited evaluation of the upper abdomen is grossly unremarkable. Impression: Nondisplaced left 2nd - 5th and possibly a subtle 6th rib fracture. Associated lingular and lower lobe atelectasis/contusions. Signed by Jake Ramírez MD 09/29/2016 08:13 A
--- NOTE | 2016-09-29 08:26 | REP ---
Clinical: Trauma. Technique: Axial contrast enhanced images from the lung bases to the pubic symphysis using 100 ml Isovue 370 intravenous contrast material with coronal and sagittal re-formations. Comparison: 08/06/2010. Findings: Lung bases demonstrate lingular and bilateral lower lobe consolidation/contusions along with a nondisplaced left anterior rib fractures. Visualized portions of the heart and mediastinum suggest mild cardiomegaly but without evidence for trauma. There is no evidence for solid organ injury. Liver, spleen, pancreas, gallbladder, bilateral adrenal glands and kidneys are relatively normal. 2.1 cm hepatic cyst noted. The enteric system is without obstruction or acute inflammatory process with scattered diverticula noted but no evidence for acute diverticulitis. Pelvis demonstrates normal bladder with enlarged heterogeneous prostate gland measuring roughly 5.1 cm maximal transverse diameter. No pelvic fluid or ascites. No intraperitoneal or retroperitoneal adenopathy. No free air. Vasculature appears relatively normal and without aneurysm or dissection. Surrounding musculoskeletal structures demonstrate age-related changes without further acute fracture (acute left rib fractures noted above). Impression: 1. No evidence for solid organ injury or acute pathology. 2. 2.1 cm simple hepatic cyst. 3. Lung bases demonstrate trauma including nondisplaced left rib fractures and basilar atelectasis/contusions. Signed by Jake Ramírez MD 09/29/2016 08:18 A
[2016-09-29] MEDS ORDERED: PANTOPRAZOLE 40MG INJ (PROTONIX) (C9113) IV SCH (09:00)
--- NOTE | 2016-09-29 09:33 | HPE ---
DATE OF ADMISSION: 09/28/2016 The patient is seen at the request of the emergency room for rib fractures and intractable pain. HISTORY OF PRESENT ILLNESS: The patient is a 61-year-old white male who was skiing at [place] earlier today and fell and hit is left side. He terms it a problem of he "zigged rather than zagged". He felt immediately short of breath, although that has resolved. He felt intense pain. He did make his way back to here and has sought treatment in the emergency room for increasing pain. Prior to this, he did not have a cough, nor was there any sputum production. He was not short of breath and states he does not have underlying lung disease. He has had no dysphagia and no weight changes and no fevers, chills, or sweats. His chest x-rays did not show a pneumothorax. It did show, however, 2 through 6 rib fractures. The patient was having increased pain in the emergency room and it was felt that he would do better with aggressive pain control. In order to decrease the probability of atelectasis and secretion retention. It is therefore, arranged for him to be seen by anesthesia for an epidural. PAST MEDICAL HISTORY: Hypercholesteremia. Hypertension. Depression. PAST SURGICAL HISTORY: He has had back surgery. Eight to ten hernia repairs for recurrences. Appendectomy. HOME MEDICATIONS: - amlodipine 2.5 mg daily - ascorbic acid 500 mg daily - vitamin D 1000 units daily - vitamin B12 1000 mg daily - Zetia 10 mg daily - multivitamins 1 daily - paroxetine 20 mg daily - pravastatin 20 mg daily HABITS: Does not smoke. Occasional alcohol. TRAVEL HISTORY: He has been to [place]. OCCUPATIONAL HISTORY: To be completed later. EXPOSURES: Has a cat at home. FAMILY HISTORY: Noncontributory. REVIEW OF SYSTEMS: Constitution: Without fevers, chills, sweats or night sweats, without weight loss. Eyes without diplopia, transient monocular blindness or prior jaundice. Nose without epistaxis. Mouth: Has his own teeth with a couple of bridges. Respiratory: See history of present illness. Cardiac: Without prior myocardial infarctions, intermittent claudication. Without leg edema, orthopnea or paroxysmal nocturnal dyspnea. GI: Without nausea, vomiting or diarrhea, constipation, melena or hematochezia, hematemesis or abdominal pain. : Without dysuria or hematuria. Prior history of renal stones. Endocrine: Without diabetes, without thyroid disease. Neurological: Without paresthesias, paralysis or seizures. Lymphatics: Without lumps, bumps in the neck, axilla or groin noticed. Hematologic: Without prolonged bleeding times. Psychiatric: Has depression for which he is being treated. PHYSICAL EXAMINATION: Well-developed, well-nourished white male in acute distress from pain. VITAL SIGNS: Blood pressure 155/104, pulse 113 in sinus rhythm, respiratory rate 18 without the use of accessory muscles. His temperature is 97.0 and he is 95% saturated on room air. EYES: His pupils equal, round, reactive to light. Extraocular muscles intact. Sclerae are anicteric. Nose without deformity. Mouth shows mucous membranes pink and moist. Lips and commissures without lesions. Teeth are in good repair. There is no oral thrush. Neck is supple. There is no jugular venous distention. No subcutaneous emphysema. Trachea is midline. There is no thyromegaly. He has 2+ carotid upstrokes and no bruits. Lungs show breath sounds equal on either side. There are no wheezes, rhonchi or rales. Percussion note is full to the diaphragm. He is tender over his left hemithorax. Cardiac exam is without murmurs, clicks, gallops or rubs. I cannot feel his point of maximum impulse (PMI). S1 and S2 are normal. Abdomen is soft and nontender. Bowel sounds are positive. There is no hepatomegaly. No CVA tenderness. Extremities show no pretibial edema with no calf tenderness. No differential swelling of the upper extremities. Skin is warm, dry and perfused without cyanosis or mottling including that of the nail beds and knees. Neurologic shows II-XII intact along with gross motor and gross sensation intact. Gait is not tested. Psychiatric showed him to be awake, alert and oriented times three with appropriate and affect and conversational. INVESTIGATIONS: His white count is 12.3 with a hemoglobin and hematocrit of 15.4 and 43.5 and his platelet count is 265. He has 86% neutrophils, 7% lymphocytes, 4% monocytes. There are no immature forms. No tactile granulosis. Blood gases show a pH of 7.38, pCO2 of 41, pO2 88 with a base excess of -1.1. Chemistries show normal electrolytes with a BUN and creatinine of 16 and 1.04, glucose of 132 and a calcium of 9.6. His chest x-ray shows poor inspiration. There is no pneumothorax. I do not see any fractures on the plain film itself as it is taken AP portably. I can see the aortic knob. His chest CT does not show a pneumothorax. He has atelectasis of the left lower lobe and some atelectatic changes in the right lower lobe. He has nondisplaced rib fractures of ribs 2 posteriorly, 3, 4, probably 5, and 6 anteriorly. They are nondisplaced. The great vessels are intact. There is no mediastinal hematoma. He does have an azygos lobe. I see no masses. His liver is intact as is his spleen. It should be noted the CT scan is done with contrast and there is no extravasation of blood outside the great vessels. I do not see mediastinal lymphadenopathy. IMPRESSION: 1. Multiple rib fractures 2 through 6, nondisplaced on the left side. 2. Increased pain from the rib fractures. 3. Splinting and atelectasis of the left side. 4. Hypercholesterolemia. 5. Hypertension. 6. Depression. PLAN AND DISCUSSION: I will have anesthesia start an epidural as soon as possible. Will admit him to the hospital for aggressive pain control. Will do the usual heparin prophylaxis. Followup with chest x-rays to make sure there is no delayed pneumothorax or hemothorax.
[2016-09-29] MEDS: DOCUSATE SODIUM 100 MG CAP PO SCH ×2 (10:26→21:17)
[2016-09-29] MEDS: PRAVASTATIN 20 MG TAB PO SCH (10:26)
[2016-09-29] MEDS: EZETIMIBE 10 MG TAB (ZETIA) PO SCH (10:28)
[2016-09-29] MEDS: MULTIVITAMINS/MINERALS THERAP 1 TAB PO SCH (10:28)
[2016-09-29] MEDS: CYANOCOBALAMIN 500 MCG TAB PO SCH (10:28)
[2016-09-29] MEDS: PANTOPRAZOLE 40MG TAB (PROTONIX) PO SCH (10:29)
[2016-09-29] MEDS: VITAMIN D 1,000 INTERNATIONAL UNITS TABLET PO SCH (10:29)
[2016-09-29] MEDS: MOM 30ML SUSPENSION UDC PO SCH (10:29)
[2016-09-29] MEDS: HEPARIN SOD (PORCINE) 5000 UNITS/ML VIAL SC SCH ×2 (10:30→21:17)
[2016-09-29] MEDS: PARoxetine 10MG TABLET PO SCH (11:44)
--- NOTE | 2016-09-29 13:43 | REP ---
Chest x-ray: Two views. History: Rib fracture. Comparison chest x-ray September 28, 2016. Findings: An epidural catheter is seen overlying the chest. EKG electrodes are noted. Today's view is exposed at a better inspiratory level. Right hemidiaphragm remains somewhat elevated. Pleural angles are sharp. No infiltrate is seen. Lung haro are clear. Heart is not enlarged. Impression: Improved level of inspiration. Epidural catheter is noted. Slightly elevated right hemidiaphragm. Signed by Lior Marina MD 09/29/2016 01:33 P
--- NOTE | 2016-09-29 14:27 | IPN ---
DATE: 09/29/2016 Mr. Chawla is doing well after placement of his epidural. He is almost pain free. He is able to take deep breaths and use the incentive spirometer. His vital signs shows a T-max of 97.0 with a heart rate that ranges between 65 and 57 in a sinus rhythm. Respiratory rate is 18 to 16 without the use of accessory muscles and he is 95% to 94% saturated on 2 liters nasal cannula. Blood pressure is ranging between 109/60 to 121/67. His intake and output the past 24 hours has been recorded as 450 in and 525 out for a near equality. He weighs 105.2 kg today compared to 102 kg yesterday. He has taken in 1100 mL in intake today, 450 of which is IV intake, and will discontinue that. On physical examination, he has equal breath sounds on either side. There are some faint rales during inspiration on the left side. Percussion note is full to the diaphragm. Cardiac exam is without murmurs, clicks, gallops or rugs. I cannot feel his PMI. S1, S2 are normal. Abdomen is soft, nontender. Bowel sounds are positive. There is no hepatomegaly. He is quite distended and tympanitic. Bowel sounds are hypoactive. Extremities show no pretibial edema. No calf tenderness. No differential swelling of the upper extremities. Skin is warm, dry and perfused without cyanosis or mottling, including that of the nail beds and knees. Neck is supple. There is no jugular venous distention. No subcutaneous emphysema. Trachea is midline. Mouth shows his mucous membranes to be pink and moist. Lips and commissures are without lesions. There is no thrush. Eyes show his pupils to be equal and reactive. Extraocular movements are intact. Sclerae nonicteric. Neurologic shows II-XII intact along with gross motor and gross sensation intact. Gait is not tested. Psychiatric shows him to be awake, alert and oriented times three with appropriate mood and affect and conversational. His white count today is 6.9 with hemoglobin and hematocrit of 12.9 and 37.3 respectively. Platelet count is 204. His differential shows 69% neutrophils, 17% lymphocytes, 8% monocytes. There are no immature forms and no toxic granulations. Electrolytes are normal with a BUN and creatinine of 16 and 1.01. Calcium is 8.3 with a glucose of 119. His chest x-ray shows his lung fully expanded to the chest wall. It is a much better x-ray today with full expansion of his lungs with a good inspiratory effort. Costophrenic angles are sharp. I see no posterior infiltrates on the lateral film. IMPRESSION: 1. Multiple rib fractures 2 through 6, nondisplaced on the left side. 2. Pain from rib fractures, well controlled. 3. Splinting and atelectasis of the left side, much improved with pain control. 4. Hypercholesterolemia. 5. Hypertension. 6. Depression. PLAN AND DISCUSSION: We will continue the epidural. I plan to control his pain for at least three or four days before removing the epidural.
[2016-09-29] MEDS: FENTANYL/BUPIVACAINE/NACL CADD 250 ML EPIDURAL SCH (21:04)
[2016-09-30] VITALS (7 sets, daily range): BP systolic 115–167; BP diastolic 68–87
[2016-09-30] MEDS: KETOROLAC 30 MG/ML VIAL (J1885) IV SCH ×4 (04:40→23:30)
[2016-09-30 05:41] LABS: BASO % 0.3 % (0.0-1.0); EOS # 0.3 K/mm3 (0.0-0.50); EOS % 5.2 % (0.0-3.0); LARGE UNSTAINED CELL # 0.1 K/mm3 (0.0-0.4); LARGE UNSTAINED CELL % 1.7 % (0.0-4.0); LYMPH # 0.9 K/mm3 (1.5-4.5); LYMPH % 16.8 % (24.0-44.0); MEAN CORPUSCULAR HEMOGLOBIN 32.1 pg (27.0-33.0); MEAN CORPUSCULAR HGB CONC 34.2 g/dl (32.0-36.5); MEAN CORPUSCULAR VOLUME 93.8 fl (80.0-96.0); MONO # 0.4 K/mm3 (0.0-0.8); MONO % 7.9 % (0.0-5.0); NEUTROPHILS # 3.7 K/mm3 (1.8-7.7); NEUTROPHILS % 68.1 % (36.0-66.0); PLATELET COUNT, AUTOMATED 192 k/mm3 (150-450); RED CELL DISTRIBUTION WIDTH 12.3 % (11.5-14.5); WHITE BLOOD COUNT 5.5 K/mm3 (4.0-10.0)
[2016-09-30 06:01] LABS: ANION GAP 5 MEQ/L (8-16); BLOOD UREA NITROGEN 11 MG/DL (7-18); CALCIUM LEVEL 8.4 MG/DL (8.8-10.2); CARBON DIOXIDE LEVEL 29 MEQ/L (21-32); CHLORIDE LEVEL 106 MEQ/L (98-107); CREATININE FOR GFR 1.03 MG/DL (0.70-1.30); GLOMERULAR FILTRATION RATE > 60.0 (>49); GLUCOSE, FASTING 88 MG/DL (80-110); POTASSIUM SERUM 4.6 MEQ/L (3.5-5.1); SODIUM LEVEL 140 MEQ/L (136-145)
[2016-09-30] MEDS: LEVALBUTEROL 1.25 MG/0.5 ML CONCENTRATE NEB NEB SCH ×3 (07:55→20:00)
[2016-09-30] MEDS: CYANOCOBALAMIN 500 MCG TAB PO SCH (09:00)
[2016-09-30] MEDS: PARoxetine 10MG TABLET PO SCH (09:46)
[2016-09-30] MEDS: DOCUSATE SODIUM 100 MG CAP PO SCH ×2 (09:46→20:21)
[2016-09-30] MEDS: EZETIMIBE 10 MG TAB (ZETIA) PO SCH (09:46)
[2016-09-30] MEDS: PRAVASTATIN 20 MG TAB PO SCH (09:47)
[2016-09-30] MEDS: PANTOPRAZOLE 40MG TAB (PROTONIX) PO SCH (09:47)
[2016-09-30] MEDS: MOM 30ML SUSPENSION UDC PO SCH (09:47)
[2016-09-30] MEDS: VITAMIN D 1,000 INTERNATIONAL UNITS TABLET PO SCH (09:47)
[2016-09-30] MEDS: MULTIVITAMINS/MINERALS THERAP 1 TAB PO SCH (09:47)
[2016-09-30] MEDS: HEPARIN SOD (PORCINE) 5000 UNITS/ML VIAL SC SCH ×2 (09:48→20:23)
--- NOTE | 2016-09-30 09:49 | REP ---
Chest x-ray: Two views. History: Rib fracture. Findings: An epidural catheter is seen along with EKG monitoring electrodes. There is subtle cortical discontinuity at the anterior end of the left fourth and sixth ribs consistent with the prior rib fractures as seen on CT. There is no evidence of pneumothorax. There is very slight blunting of the left lateral and posterior pleural angles. Right hemidiaphragm is somewhat elevated unchanged. No infiltrate or atelectasis seen. Cardiomediastinal silhouette is unremarkable and unchanged. Some aortic tortuosity is seen. Impression: Left anterior rib fractures. There is slight blunting left lateral and posterior pleural angles. Signed by Lior Marina MD 09/30/2016 09:40 A
--- NOTE | 2016-09-30 10:04 | IPN ---
DATE: 09/30/2016 Mr. Chawla is essentially pain free now. He has been up and around walking. He can take deep breaths and cough. In essence, the epidural was doing spectacularly. He still feels some clicking in his anterior chest. His vital signs show as T-max of 98.4 with a heart rate that ranges between 59 and 67 in a sinus rhythm, a respiratory rate that is constant at 18 who is 96% to 94% saturated on room air and whose blood pressure is ranging between 115/68 to 167/87. Intake and output the past 24 hours has been recorded as 1470 in and 600 out for a positivity of 870 mL. Weight today is 108.4 kg compared to 105.2 kg yesterday. On physical examination, his lung show normal vesicular sounds on either side. Lung sounds are equal. Percussion note is full to the diaphragm. Cardiac exam is without murmurs, clicks, gallops or rubs. I cannot feel his PMI. S1, S2 are normal. Abdomen is soft and nontender. He is less distended and he has active bowel sounds. There is no hepatomegaly and no costovertebral angle tenderness. Extremities show 1+ pretibial edema and no calf tenderness. No differential swelling of the upper extremities. His skin is warm, dry and perfused without cyanosis or clubbing, including that of the nail beds and the knees. Neck is supple. There is no jugular venous distention. No subcutaneous emphysema. Trachea is midline. Mouth shows his mucous membranes to be pink and moist. Lips and commissures are without lesions. There is no thrush. Eyes show pupils to be equal and reactive. Extraocular motion is intact. Sclerae nonicteric. Neurologic shows II-XII intact along with gross motor and gross sensation intact. Gait is also intact. Psychiatric showed him to be awake, alert and oriented times three with appropriate mood and affect and conversational. His white count today is 5.5 with hemoglobin and hematocrit of 12.9 and 37.9, unchanged from yesterday, with a platelet count of 182 and stable. Differential shows 68% neutrophils, 16% lymphocytes, 7% monocytes. There are no immature forms and no toxic granulations. Electrolytes are normal with a BUN and creatinine of 11 and 1.03. Glucose is 88 with a calcium of 8.4. There are no blood gases on him today. His chest x-ray shows his lung fully expanded to the chest wall. The left side shows opacity along the chest wall consistent with rib fractures and pleural thickening and inflammation. There are no infiltrates. Costophrenic angles are sharp. IMPRESSION: 1. Multiple rib fractures, 2 through 6, nondisplaced, on the left side. 2. Pain from rib fractures, well controlled. 3. Splitting and atelectasis of the left side, improved with pain control. 4. Hypercholesterolemia. 5. Hypertension. 6. Depression. PLAN AND DISCUSSION: We will continue him on the epidural for pain control. I am not going to diurese him today as he is only slightly positive. He is on the usual heparin prophylaxis.
[2016-09-30] MEDS: FENTANYL/BUPIVACAINE/NACL CADD 250 ML EPIDURAL SCH (20:09)
--- NOTE | 2016-09-30 21:00 | EDDOCDS ---
Physician Documentation [facility] Name: Alvino Chawla Age: 61 yrs Sex: Male : 1955 Arrival Date: 09/28/2016 Time: 15:53 Bed 2 Private MD: Leandro Tyson MD Disposition: 09/28 18:53 Critical Care: Critical care not applicable. Disposition: 09/28/16 18:56 Hospitalization ordered by Germán Santiago for Inpatient Admission. Preliminary diagnosis are Fall from snow-skis, Multiple fractures of ribs, left side - 2nd - 6th. - Bed requested for PCU. - Status is Inpatient Admission. sls1 - Condition is Stable. - Problem is new. - Symptoms have improved. HPI: 16:35 This 61 yrs old Male presents to ER via Wheelchair with complaints of Chest pc Wall Injury. 16:35 The history is obtained from the patient, the patient's spouse. 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 He was able to get up off the slope and ski down to the base. His drove him here, as he did not want to seek care at any of the facilities he passed on his way. He complains of pain in his left lower chest, worse with torso movement, complains of splinting respirations. He denies any abdominal pain, denies extremity pain and says he has been putting his left shoulder and arm "through all the motions and it doesn't hurt". At their worst, the symptoms were a 10 out of 10. In the emergency department, the symptoms are a 10 out of 10. The patient has not experienced similar symptoms in the past. The patient has been recently seen by their primary care provider, for a routine, regularly scheduled appointment. Historical: - Allergies: no known allergies; - Home Meds: 1. Pravachol 20 mg Oral tab 1 tab once daily 2. lisinopril 10 mg Oral tab 1 tab once daily 3. Paxil Oral 1 tab once daily 4. Zetia Oral 1 tab once daily - PMHx: Hypercholesterolemia; Hypertension; - PSHx: back surgery; Hernia repair; Appendectomy; - The history from nurses notes was reviewed: and I agree with what is documented. - Social history: Smoking status: Patient states was never smoker of tobacco. No barriers to communication noted, The patient speaks fluent Mexican. - : The pt / caregiver states he / she is not on anticoagulants. Home medication list is obtained from the patient. - Hospitalizations: : No recent hospitalization is reported. - Exposure Risk Screening:: None identified. - Immunization history:: All immunizations up-to-date. - Family history: Not pertinent. - Social history:: the patient is a non-smoker, the patient drinks alcohol. ROS: 16:35 All systems are negative except as listed. pc Exam: 16:35 General Appearance: alert, the patient is in moderate distress. pc 16:35 EENT: normal eye inspection, ears, nose and throat normal, pharynx normal, mucous membranes moist 16:35 Neck: The exam reveals no acute abnormalities. ROM is normal and painless. No nuchal rigidity is noted.. 16:35 Respiratory: no respiratory distress, normal breath sounds, Respirations/effort: splinting, Chest tenderness in the left lateral anterior chest, is associated with movement of trunk, respirations, palpation. 16:35 CVS: regular rhythm, normal S1 and S2, no murmurs, strong peripheral pulses, normal capillary refill, the patient is tachycardic, at 110 bpm. 16:35 Abdomen: soft, no organomegaly, normal bowel sounds, mild tenderness in the left upper quadrant, without rebound, voluntary guarding is not appreciated, involuntary guarding is not appreciated. 16:35 Back: normal inspection. 16:35 Skin: skin color is normal, warm, dry. 16:35 Extremities: The extremities have a grossly normal appearance, are non-tender, without acute ROM abnormalities. 16:35 Neuro: oriented x 3, cranial nerves normal as tested, no motor deficits, no sensory deficits. 16:35 Psych: normal mood. Vital Signs: 15:54 BP 155 / 104; Pulse 113; Resp 18 S; Temp 97.0; Pulse Ox 95% on R/A; Weight 102.06 kg / dd6 225 lbs (R); Height 6 ft. 0 in. (182.88 cm) (R); 16:33 BP 145 / 94 (auto/); ck1 16:34 Pulse 88 MON; Pulse Ox 93% ; ck1 16:48 BP 153 / 99 (auto/); ck1 16:48 Pulse 90 MON; Pulse Ox 92% ; ck1 17:03 BP 157 / 101 (auto/); ck1 17:04 Pulse 92 MON; Pulse Ox 95% ; ck1 17:10 Pulse 96 MON; Pulse Ox 94% ; ck1 17:11 BP 155 / 102 (auto/); ck1 17:12 BP 155 / 102; Pulse 90; Resp 18; Temp 98.2(TE); Pulse Ox 95% on 2 lpm NC; Pain 3/10; ck1 17:18 BP 154 / 100 (auto/); ck1 17:18 Pulse 92 MON; Pulse Ox 94% ; ck1 17:33 BP 187 / 108 (auto/); ck1 17:34 Pulse 80 MON; Pulse Ox 92% ; ck1 17:48 BP 157 / 94 (auto/); ck1 17:48 Pulse 86 MON; Pulse Ox 96% ; ck1 17:49 BP 157 / 94; Pulse 88; Resp 18; Temp 98.8(TE); Pulse Ox 95% on 2 lpm NC; Pain 3/10; ck1 18:03 BP 138 / 99 (auto/); ck1 18:03 Pulse 96 MON; Pulse Ox 96% ; ck1 18:18 BP 149 / 100 (auto/); ck1 18:18 Pulse 82 MON; Pulse Ox 96% ; ck1 18:33 BP 160 / 89 (auto/); ck1 18:34 Pulse 90 MON; Pulse Ox 95% ; ck1 18:48 BP 131 / 85 (auto/); ck1 18:49 Pulse 96 MON; Pulse Ox 94% ; ck1 19:18 BP 155 / 101 (auto/); jp6 19:19 Pulse 86 MON; Pulse Ox 94% ; jp6 19:19 BP 151 / 96; Pulse 84; Resp 18; Temp 98.9(TE); Pulse Ox 95% on 2 lpm NC; Pain 4/10; jp6 15:54 Body Mass Index 30.52 (102.06 kg, 182.88 cm) dd6 MDM: 16:33 IV Saline Lock ordered. pc 16:33 NS 0.9% 1000 ml IV at 100 mL/hr continuous ordered. pc 16:33 morphine 4 mg IVP every 30 minutes; Document pain score/vitals after each dose (Hold if pc SBP < 90mmHg) x2 ordered. 16:33 Ondansetron 4 mg IVP once ordered. pc 16:34 CBC with Diff Ordered. EDMS 16:35 MED Profile Ordered. EDMS 16:35 NOTHING BY MOUTH+DIET ordered. EDMS 16:35 CT Chest With Contrast Ordered. EDMS 16:35 CT ABD & PELVIS: IV Contrast Only Ordered. EDMS 16:35 Chest, 1 View Ordered. EDMS 16:35 Differential Diagnosis: Fall, left chest trauma r/o rib fractures, PTX, splenic injury. pc Plan: labs, meds, imaging. 17:05 CBC with Diff Reviewed. pc 17:05 MED Profile Reviewed. pc 17:09 Financial registration complete. zo 17:10 [facility] Payment Agreement was scanned into [employer] and attached to record. zo 18:34 Admission / Observation Status ordered. EDMS 18:34 REGULAR DIET ordered. EDMS 18:35 ARTERIAL BLOOD GAS Ordered. EDMS 18:36 morphine 4 mg IVP once ordered. pc 18:36 Chest, 2 view PA, Lat Ordered. EDMS 18:37 Chest, 2 view PA, Lat Ordered. EDMS 18:37 Chest, 2 view PA, Lat Ordered. EDMS 18:37 Chest, 2 view PA, Lat Ordered. EDMS 18:37 Chest, 2 view PA, Lat Ordered. EDMS 18:37 Chest, 2 view PA, Lat Ordered. EDMS 18:37 Chest, 2 view PA, Lat Ordered. EDMS 18:38 Chest, 2 view PA, Lat Ordered. EDMS 18:38 Chest, 2 view PA, Lat Ordered. EDMS 18:38 Chest, 2 view PA, Lat Ordered. EDMS 18:38 BED REQUEST+ADM ordered. EDMS 18:53 Data reviewed: old medical records, vital signs, nurses notes, lab test results, all pc radiology studies and available results. Test interpretation: LAB - all labs as ordered have been reviewed, interpreted and considered in the overall management of the clinical presentation; X-RAY - interpreted by Radiologist and personally reviewed, 1 view chest no acute disease, interpreted by Radiologist and personally reviewed, Abdomen/Pelvis CT; no acute disease, Chest CT; nondisplaced left 2-6 ribs, else nad. The patient has been re-examined and re-evaluated. The patient's symptoms have mildly improved after treatment. Physician consultation: Dr. Germán Santiago MD regarding admission. Disposition: The historical points, examination findings, and any diagnostic results supporting the provided diagnosis, were discussed with the patient or legal guardian. The need for further work-up and/or treatment in the hospital was explained. 19:32 BASIC METABOLIC PROFILE Ordered. EDMS 19:33 CBC WITH DIFFERENTIAL Ordered. EDMS 19:33 ARTERIAL BLOOD GAS Ordered. EDMS Administered Medications: 16:51 Drug: Ondansetron 4 mg [ondansetron HCl 2 mg/mL intravenous solution (2 mL)] Route: ck1 IVP; Site: right hand; 16:52 Drug: NS 0.9% 1000 ml [sodium chloride 0.9 % intravenous solution] Route: IV; Rate: 100 ck1 mL/hr; Site: right hand; 16:52 Drug: morphine 4 mg [morphine 4 mg/mL intravenous cartridge (1 mL)] Route: IVP; Site: [facility] right hand; 17:12 Follow up: BP 155 / 102; Pulse 90 bpm; Resp 18 bpm; Temp 98.2 Temporal; Pulse Ox 95% 2 ck1 lpm Nasal Cannula; Pain 3/10 Adult; Response: Confirmed pt not driving.; No Adverse Reaction; Pain is decreased 17:30 Drug: morphine 4 mg [morphine 4 mg/mL intravenous cartridge (1 mL)] Route: IVP; Site: [facility] right hand; 17:49 Follow up: BP 157 / 94; Pulse 88 bpm; Resp 18 bpm; Temp 98.8 Temporal; Pulse Ox 95% 2 ck1 lpm Nasal Cannula; Pain 3/10 Adult; Response: Confirmed pt not driving.; No Adverse Reaction; Pain is decreased 18:41 Drug: morphine 4 mg [morphine 4 mg/mL intravenous cartridge (1 mL)] Route: IVP; Site: [facility] right [facility]; Signatures: Dispatcher [employer] EDMS Hany Garcia MD MD pc Quesenberry HC, Deborah, RN RN daq Olin, Zoeann zo Soosairaj, Rosemary, RN RN rs3 Maritza Chatman RN RN sls1 Chloe Bello RN ck1 The chart was reviewed and I authenticate all verbal orders and agree with the evaluation and treatment provided.Attachments: 17:10 [facility] Payment Agreement zo Chart Complete MTDD
--- NOTE | 2016-09-30 21:00 | EDDOCDS ---
Physician Documentation [facility] Name: Alvino Chawla Age: 61 yrs Sex: Male : 1955 Arrival Date: 09/28/2016 Time: 15:53 Bed 2 Private MD: Leandro Tyson MD Disposition: 09/28 18:53 Critical Care: Critical care not applicable. Disposition: 09/28/16 18:56 Hospitalization ordered by Germán Santiago for Inpatient Admission. Preliminary diagnosis are Fall from snow-skis, Multiple fractures of ribs, left side - 2nd - 6th. - Bed requested for PCU. - Status is Inpatient Admission. sls1 - Condition is Stable. - Problem is new. - Symptoms have improved. HPI: 16:35 This 61 yrs old Male presents to ER via Wheelchair with complaints of Chest pc Wall Injury. 16:35 The history is obtained from the patient, the patient's spouse. 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 He was able to get up off the slope and ski [place] to the base. His drove him here, as he did not want to seek care at any of the facilities he passed on his way. He complains of pain in his left lower chest, worse with torso movement, complains of splinting respirations. He denies any abdominal pain, denies extremity pain and says he has been putting his left shoulder and arm "through all the motions and it doesn't hurt". At their worst, the symptoms were a 10 out of 10. In the emergency department, the symptoms are a 10 out of 10. The patient has not experienced similar symptoms in the past. The patient has been recently seen by their primary care provider, for a routine, regularly scheduled appointment. Historical: - Allergies: no known allergies; - Home Meds: 1. Pravachol 20 mg Oral tab 1 tab once daily 2. lisinopril 10 mg Oral tab 1 tab once daily 3. Paxil Oral 1 tab once daily 4. Zetia Oral 1 tab once daily - PMHx: Hypercholesterolemia; Hypertension; - PSHx: back surgery; Hernia repair; Appendectomy; - The history from nurses notes was reviewed: and I agree with what is documented. - Social history: Smoking status: Patient states was never smoker of tobacco. No barriers to communication noted, The patient speaks fluent Emir[place]. - : The pt / caregiver states he / she is not on anticoagulants. Home medication list is obtained from the patient. - Hospitalizations: : No recent hospitalization is reported. - Exposure Risk Screening:: None identified. - Immunization history:: All immunizations up-to-date. - Family history: Not pertinent. - Social history:: the patient is a non-smoker, the patient drinks alcohol. ROS: 16:35 All systems are negative except as listed. pc Exam: 16:35 General Appearance: alert, the patient is in moderate distress. pc 16:35 EENT: normal eye inspection, ears, nose and throat normal, pharynx normal, mucous membranes moist 16:35 Neck: The exam reveals no acute abnormalities. ROM is normal and painless. No nuchal rigidity is noted.. 16:35 Respiratory: no respiratory distress, normal breath sounds, Respirations/effort: splinting, Chest tenderness in the left lateral anterior chest, is associated with movement of trunk, respirations, palpation. 16:35 CVS: regular rhythm, normal S1 and S2, no murmurs, strong peripheral pulses, normal capillary refill, the patient is tachycardic, at 110 bpm. 16:35 Abdomen: soft, no organomegaly, normal bowel sounds, mild tenderness in the left upper quadrant, without rebound, voluntary guarding is not appreciated, involuntary guarding is not appreciated. 16:35 Back: normal inspection. 16:35 Skin: skin color is normal, warm, dry. 16:35 Extremities: The extremities have a grossly normal appearance, are non-tender, without acute ROM abnormalities. 16:35 Neuro: oriented x 3, cranial nerves normal as tested, no motor deficits, no sensory deficits. 16:35 Psych: normal mood. Vital Signs: 15:54 BP 155 / 104; Pulse 113; Resp 18 S; Temp 97.0; Pulse Ox 95% on R/A; Weight 102.06 kg / dd6 225 lbs (R); Height 6 ft. 0 in. (182.88 cm) (R); 16:33 BP 145 / 94 (auto/); ck1 16:34 Pulse 88 MON; Pulse Ox 93% ; ck1 16:48 BP 153 / 99 (auto/); ck1 16:48 Pulse 90 MON; Pulse Ox 92% ; ck1 17:03 BP 157 / 101 (auto/); ck1 17:04 Pulse 92 MON; Pulse Ox 95% ; ck1 17:10 Pulse 96 MON; Pulse Ox 94% ; ck1 17:11 BP 155 / 102 (auto/); ck1 17:12 BP 155 / 102; Pulse 90; Resp 18; Temp 98.2(TE); Pulse Ox 95% on 2 lpm NC; Pain 3/10; ck1 17:18 BP 154 / 100 (auto/); ck1 17:18 Pulse 92 MON; Pulse Ox 94% ; ck1 17:33 BP 187 / 108 (auto/); ck1 17:34 Pulse 80 MON; Pulse Ox 92% ; ck1 17:48 BP 157 / 94 (auto/); ck1 17:48 Pulse 86 MON; Pulse Ox 96% ; ck1 17:49 BP 157 / 94; Pulse 88; Resp 18; Temp 98.8(TE); Pulse Ox 95% on 2 lpm NC; Pain 3/10; ck1 18:03 BP 138 / 99 (auto/); ck1 18:03 Pulse 96 MON; Pulse Ox 96% ; ck1 18:18 BP 149 / 100 (auto/); ck1 18:18 Pulse 82 MON; Pulse Ox 96% ; ck1 18:33 BP 160 / 89 (auto/); ck1 18:34 Pulse 90 MON; Pulse Ox 95% ; ck1 18:48 BP 131 / 85 (auto/); ck1 18:49 Pulse 96 MON; Pulse Ox 94% ; ck1 19:18 BP 155 / 101 (auto/); jp6 19:19 Pulse 86 MON; Pulse Ox 94% ; jp6 19:19 BP 151 / 96; Pulse 84; Resp 18; Temp 98.9(TE); Pulse Ox 95% on 2 lpm NC; Pain 4/10; jp6 15:54 Body Mass Index 30.52 (102.06 kg, 182.88 cm) dd6 MDM: 16:33 IV Saline Lock ordered. pc 16:33 NS 0.9% 1000 ml IV at 100 mL/hr continuous ordered. pc 16:33 morphine 4 mg IVP every 30 minutes; Document pain score/vitals after each dose (Hold if pc SBP < 90mmHg) x2 ordered. 16:33 Ondansetron 4 mg IVP once ordered. pc 16:34 CBC with Diff Ordered. EDMS 16:35 MED Profile Ordered. EDMS 16:35 NOTHING BY MOUTH+DIET ordered. EDMS 16:35 CT Chest With Contrast Ordered. EDMS 16:35 CT ABD & PELVIS: IV Contrast Only Ordered. EDMS 16:35 Chest, 1 View Ordered. EDMS 16:35 Differential Diagnosis: Fall, left chest trauma r/o rib fractures, PTX, splenic injury. pc Plan: labs, meds, imaging. 17:05 CBC with Diff Reviewed. pc 17:05 MED Profile Reviewed. pc 17:09 Financial registration complete. zo 17:10 [facility] Payment Agreement was scanned into [employer] and attached to record. zo 18:34 Admission / Observation Status ordered. EDMS 18:34 REGULAR DIET ordered. EDMS 18:35 ARTERIAL BLOOD GAS Ordered. EDMS 18:36 morphine 4 mg IVP once ordered. pc 18:36 Chest, 2 view PA, Lat Ordered. EDMS 18:37 Chest, 2 view PA, Lat Ordered. EDMS 18:37 Chest, 2 view PA, Lat Ordered. EDMS 18:37 Chest, 2 view PA, Lat Ordered. EDMS 18:37 Chest, 2 view PA, Lat Ordered. EDMS 18:37 Chest, 2 view PA, Lat Ordered. EDMS 18:37 Chest, 2 view PA, Lat Ordered. EDMS 18:38 Chest, 2 view PA, Lat Ordered. EDMS 18:38 Chest, 2 view PA, Lat Ordered. EDMS 18:38 Chest, 2 view PA, Lat Ordered. EDMS 18:38 BED REQUEST+ADM ordered. EDMS 18:53 Data reviewed: old medical records, vital signs, nurses notes, lab test results, all pc radiology studies and available results. Test interpretation: LAB - all labs as ordered have been reviewed, interpreted and considered in the overall management of the clinical presentation; X-RAY - interpreted by Radiologist and personally reviewed, 1 view chest no acute disease, interpreted by Radiologist and personally reviewed, Abdomen/Pelvis CT; no acute disease, Chest CT; nondisplaced left 2-6 ribs, else nad. The patient has been re-examined and re-evaluated. The patient's symptoms have mildly improved after treatment. Physician consultation: Dr. Germán Santiago MD regarding admission. Disposition: The historical points, examination findings, and any diagnostic results supporting the provided diagnosis, were discussed with the patient or legal guardian. The need for further work-up and/or treatment in the hospital was explained. 19:32 BASIC METABOLIC PROFILE Ordered. EDMS 19:33 CBC WITH DIFFERENTIAL Ordered. EDMS 19:33 ARTERIAL BLOOD GAS Ordered. EDMS Administered Medications: 16:51 Drug: Ondansetron 4 mg [ondansetron HCl 2 mg/mL intravenous solution (2 mL)] Route: ck1 IVP; Site: right hand; 16:52 Drug: NS 0.9% 1000 ml [sodium chloride 0.9 % intravenous solution] Route: IV; Rate: 100 ck1 mL/hr; Site: right hand; 16:52 Drug: morphine 4 mg [morphine 4 mg/mL intravenous cartridge (1 mL)] Route: IVP; Site: [facility] right hand; 17:12 Follow up: BP 155 / 102; Pulse 90 bpm; Resp 18 bpm; Temp 98.2 Temporal; Pulse Ox 95% 2 ck1 lpm Nasal Cannula; Pain 3/10 Adult; Response: Confirmed pt not driving.; No Adverse Reaction; Pain is decreased 17:30 Drug: morphine 4 mg [morphine 4 mg/mL intravenous cartridge (1 mL)] Route: IVP; Site: [facility] right hand; 17:49 Follow up: BP 157 / 94; Pulse 88 bpm; Resp 18 bpm; Temp 98.8 Temporal; Pulse Ox 95% 2 ck1 lpm Nasal Cannula; Pain 3/10 Adult; Response: Confirmed pt not driving.; No Adverse Reaction; Pain is decreased 18:41 Drug: morphine 4 mg [morphine 4 mg/mL intravenous cartridge (1 mL)] Route: IVP; Site: [facility] right [facility]; Signatures: Dispatcher [employer] EDMS Hany Garcia MD MD pc Quesenberry HC, Deborah, RN RN daq Olin, Zoeann zo Soosairaj, Rosemary, RN RN rs3 Maritza Chatman RN RN sls1 Chloe Bello RN ck1 The chart was reviewed and I authenticate all verbal orders and agree with the evaluation and treatment provided.Attachments: 17:10 [facility] Payment Agreement zo Chart Complete MTDD
--- NOTE | 2016-09-30 21:00 | EDDOCDS ---
Nurse's Notes [facility] Name: Alvino Chawla Age: 61 yrs Sex: Male : 1955 Arrival Date: 09/28/2016 Time: 15:53 Bed 2 Private MD: Leandro Tyson MD Diagnosis: Fall from snow-skis;Multiple fractures of ribs, left side- - Presentation: 09/28 16:01 Presenting complaint: states: [place] [place] on left rs3 side. reports of Left upper chest pain. pain with breathing. Adult Sepsis Screening: The patient does not have new or worsening altered mentation. Patient's respiratory rate is less than 22. Systolic blood pressure is greater than 100. Patient has a qSOFA score of 0- Negative Sepsis Screen. Suicide/Homicide risk assessment- the patient denies having any suicidal and/or homicidal ideations and does not present with any other emotional, behavioral or mental health complaints. Status: Patient is not a service delivery consultant or dependent. Transition of care: patient was not received from another setting of care. 16:01 Acuity: YANDEL Level 3 rs3 16:01 Method Of Arrival: Wheelchair rs3 Triage Assessment: 16:05 General: Appears in no apparent distress. Pain: Location: anterior aspect of left upper rs3 chest. HIV screening NA for this visit Offered previously. Historical: - Allergies: no known allergies; - Home Meds: 1. Pravachol 20 mg Oral tab 1 tab once daily 2. lisinopril 10 mg Oral tab 1 tab once daily 3. Paxil Oral 1 tab once daily 4. Zetia Oral 1 tab once daily - PMHx: Hypercholesterolemia; Hypertension; - PSHx: back surgery; Hernia repair; Appendectomy; - The history from nurses notes was reviewed: and I agree with what is documented. - Social history: Smoking status: Patient states was never smoker of tobacco. No barriers to communication noted, The patient speaks fluent [place]. - : The pt / caregiver states he / she is not on anticoagulants. Home medication list is obtained from the patient. - Hospitalizations: : No recent hospitalization is reported. - Exposure Risk Screening:: None identified. - Immunization history:: All immunizations up-to-date. - Family history: Not pertinent. - Social history:: the patient is a non-smoker, the patient drinks alcohol. Screenin:40 Screening information is obtained from the patient. Fall risk: No risks identified. ck1 Assistance ADL's: requires no assistance with activities of daily living. Abuse/DV Screen: The patient / caregiver reports he/she is: not in a situation that causes fear, pain or injury. Nutritional screening: No deficits noted. home support is adequate. 16:52 Advance Directives: Currently, there is no health care proxy. ck1 Assessment: 16:39 General: Appears uncomfortable, Behavior is appropriate for age, cooperative. Pain: ck1 Location: anterior aspect of left upper chest Pain currently is 8 out of 10 on a pain scale. Neurological: Level of Consciousness is awake, alert, obeys commands, Oriented to person, place, time. Respiratory: Respiratory effort is unlabored, Respiratory pattern is regular, symmetrical. GI: Reports nausea. Derm: Skin is intact, is healthy with good turgor, Skin is diaphoretic, Skin is normal. Musculoskeletal: Circulation, motion, and sensation intact Range of motion intact in all extremities. 17:13 General: Appears in no apparent distress, comfortable, Behavior is appropriate for age, ck1 cooperative. Pain: Location: anterior aspect of left upper chest Pain currently is 3 out of 10 on a pain scale. Neurological: Level of Consciousness is awake, alert, obeys commands, Oriented to person, place, time. Cardiovascular: Rhythm is sinus rhythm. Respiratory: Respiratory effort is unlabored, Respiratory pattern is regular, symmetrical. GI: No deficits noted. Derm: Skin is pink, warm & dry. 17:50 General: Appears in no apparent distress, comfortable, Behavior is appropriate for age, ck1 cooperative. Pain: Location: anterior aspect of left upper chest Pain currently is 3 out of 10 on a pain scale. Neurological: Level of Consciousness is awake, alert, obeys commands, Oriented to person, place, time. Cardiovascular: Rhythm is sinus rhythm. Respiratory: Respiratory effort is unlabored, Respiratory pattern is regular, symmetrical. GI: No deficits noted. Derm: Skin is pink, warm & dry. Musculoskeletal: Circulation, motion, and sensation intact Range of motion intact in all extremities. 18:50 General: Appears in no apparent distress, comfortable, Behavior is appropriate for age, ck1 cooperative. Pain: Location: anterior aspect of left upper chest Pain currently is 5 out of 10 on a pain scale. Neurological: Level of Consciousness is awake, alert, obeys commands, Oriented to person, place, time. Respiratory: Respiratory effort is unlabored, Respiratory pattern is regular, symmetrical. GI: No deficits noted. Derm: Skin is pink, warm & dry. 19:35 General: Appears uncomfortable, well developed, well nourished, Behavior is appropriate jp6 for age, cooperative, Reports left chest pain, pain with deep breathing. Pain: Location: left lateral anterior chest Pain currently is 4 out of 10 on a pain scale. Neurological: Level of Consciousness is awake, alert, Oriented to person, place, time. EENT: No deficits noted. Cardiovascular: Capillary refill < 3 seconds Heart tones S1 S2 present Rhythm is sinus rhythm No ectopy. Respiratory: Airway is patent Respiratory effort is even, unlabored, shallow, Respiratory pattern is regular, symmetrical, Breath sounds are clear bilaterally. GI: No deficits noted. : No deficits noted. Derm: Skin is intact, Skin is dry, Skin is pale, Skin temperature is warm. Musculoskeletal: Circulation, motion, and sensation intact Capillary refill < 3 seconds Range of motion intact in all extremities. Vital Signs: 15:54 BP 155 / 104; Pulse 113; Resp 18 S; Temp 97.0; Pulse Ox 95% on R/A; Weight 102.06 kg dd6 (R); Height 6 ft. 0 in. (182.88 cm) (R); 16:33 BP 145 / 94 (auto/); ck1 16:34 Pulse 88 MON; Pulse Ox 93% ; ck1 16:48 BP 153 / 99 (auto/); ck1 16:48 Pulse 90 MON; Pulse Ox 92% ; ck1 17:03 BP 157 / 101 (auto/); ck1 17:04 Pulse 92 MON; Pulse Ox 95% ; ck1 17:10 Pulse 96 MON; Pulse Ox 94% ; ck1 17:11 BP 155 / 102 (auto/); ck1 17:12 BP 155 / 102; Pulse 90; Resp 18; Temp 98.2(TE); Pulse Ox 95% on 2 lpm NC; Pain 3/10; ck1 17:18 BP 154 / 100 (auto/); ck1 17:18 Pulse 92 MON; Pulse Ox 94% ; ck1 17:33 BP 187 / 108 (auto/); ck1 17:34 Pulse 80 MON; Pulse Ox 92% ; ck1 17:48 BP 157 / 94 (auto/); ck1 17:48 Pulse 86 MON; Pulse Ox 96% ; ck1 17:49 BP 157 / 94; Pulse 88; Resp 18; Temp 98.8(TE); Pulse Ox 95% on 2 lpm NC; Pain 3/10; ck1 18:03 BP 138 / 99 (auto/); ck1 18:03 Pulse 96 MON; Pulse Ox 96% ; ck1 18:18 BP 149 / 100 (auto/); ck1 18:18 Pulse 82 MON; Pulse Ox 96% ; ck1 18:33 BP 160 / 89 (auto/); ck1 18:34 Pulse 90 MON; Pulse Ox 95% ; ck1 18:48 BP 131 / 85 (auto/); ck1 18:49 Pulse 96 MON; Pulse Ox 94% ; ck1 19:18 BP 155 / 101 (auto/); jp6 19:19 Pulse 86 MON; Pulse Ox 94% ; jp6 19:19 BP 151 / 96; Pulse 84; Resp 18; Temp 98.9(TE); Pulse Ox 95% on 2 lpm NC; Pain 4/10; jp6 15:54 Body Mass Index 30.52 (102.06 kg, 182.88 cm) dd6 Vitals: 15:54 Log In Time: September 28, 2016 at 15:52. dd6 ED Course: 15:54 Patient visited by Jay Jackson PCA. dd6 15:54 Leandro Tyson is Private Physician. dd6 15:54 Patient moved to Waiting dd6 15:55 Patient moved to Pre RCE dd6 16:03 Triage Initiated rs3 16:07 Sugey Valles,RN is Primary Nurse. dls 16:07 Chloe Bello,RN is Primary Nurse. dls 16:07 Patient moved to 9 dls 16:10 Patient moved to 8 dy 16:19 Patient visited by Chloe Bello,ANA. ck1 16:24 Hany Garcia MD is Attending Physician. pc 16:35 Patient visited by Hany Garcia MD. pc 16:38 MED Profile Sent. ck1 16:38 CBC with Diff Sent. ck1 16:39 The patient / caregiver is instructed regarding the plan of care and ED course. ck1 16:39 Inserted saline lock: 20 gauge in right hand and blood collected. The patient tolerated ck1 the procedure well. 16:52 O2 via nasal cannula \T\ 2L/min. ck1 16:53 Patient visited by Chloe Bello RN. ck1 17:10 [facility] Payment Agreement was scanned into [employer] and attached to record. zo 17:37 Patient visited by Chloe Bello,ANA. ck1 17:52 Chest, 1 View Returned. EDMS 18:02 Patient visited by Chloe Bello,ANA. ck1 18:33 Patient visited by Chloe Bello,ANA. ck1 18:44 ARTERIAL BLOOD GAS Sent. rs5 18:50 Patient visited by Chloe Bello RN. ck1 18:52 Primary Nurse role handed off by Chloe Bello RN ck1 18:54 Primary Nurse role handed off by Sugey Valles RN jp6 18:54 Yoselin Anderson RN is Primary Nurse. jp6 18:55 Germán Santiago MD is Hospitalizing Provider. pc 19:19 moved to room C2. jp6 19:19 shaper operator on. Pulse ox on. NIBP on. jp6 19:25 Patient moved to 2 [facility] 20:08 No procedures done that require assistance. jp6 Administered Medications: 16:51 Drug: Ondansetron 4 mg [ondansetron HCl 2 mg/mL intravenous solution (2 mL)] Route: ck1 IVP; Site: right hand; 16:52 Drug: NS 0.9% 1000 ml [sodium chloride 0.9 % intravenous solution] Route: IV; Rate: 100 ck1 mL/hr; Site: right hand; 16:52 Drug: morphine 4 mg [morphine 4 mg/mL intravenous cartridge (1 mL)] Route: IVP; Site: ck right hand; 17:12 Follow up: BP 155 / 102; Pulse 90 bpm; Resp 18 bpm; Temp 98.2 Temporal; Pulse Ox 95% 2 ck1 lpm Nasal Cannula; Pain 3/10 Adult; Response: Confirmed pt not driving.; No Adverse Reaction; Pain is decreased 17:30 Drug: morphine 4 mg [morphine 4 mg/mL intravenous cartridge (1 mL)] Route: IVP; Site: ck1 right hand; 17:49 Follow up: BP 157 / 94; Pulse 88 bpm; Resp 18 bpm; Temp 98.8 Temporal; Pulse Ox 95% 2 ck1 lpm Nasal Cannula; Pain 3/10 Adult; Response: Confirmed pt not driving.; No Adverse Reaction; Pain is decreased 18:41 Drug: morphine 4 mg [morphine 4 mg/mL intravenous cartridge (1 mL)] Route: IVP; Site: ck1 right hand; RT: 18:44 ABG's drawn from left radial artery pressure held for 5 minutes no bleeding noted rs5 pressure bandage applied specimen sent pt. tolerated well. Order Results: Lab Order: CBC with Diff; SPEC'M 09/28/16 16:37 Test: WHITE BLOOD COUNT; Value: 12.3; Range: 4.0-10.0; Abnormal: Above high normal; Units: K/mm3; Status: F Test: RED BLOOD COUNT; Value: 4.75; Range: 4.30-6.10; Units: M/mm3; Status: F Test: HEMOGLOBIN; Value: 15.4; Range: 14.0-18.0; Units: g/dl; Status: F Test: HEMATOCRIT; Value: 43.5; Range: 42.0-52.0; Units: %; Status: F Test: MEAN CORPUSCULAR VOLUME; Value: 91.6; Range: 80.0-96.0; Units: fl; Status: F Test: MEAN CORPUSCULAR HEMOGLOBIN; Value: 32.5; Range: 27.0-33.0; Units: pg; Status: F Test: MEAN CORPUSCULAR HGB CONC; Value: 35.5; Range: 32.0-36.5; Units: g/dl; Status: F Test: RED CELL DISTRIBUTION WIDTH; Value: 12.1; Range: 11.5-14.5; Units: %; Status: F Test: PLATELET COUNT, AUTOMATED; Value: 265; Range: 150-450; Units: k/mm3; Status: F Test: NEUTROPHILS %; Value: 86.2; Range: 36.0-66.0; Abnormal: Above high normal; Units: %; Status: F Test: LYMPH %; Value: 7.8; Range: 24.0-44.0; Abnormal: Below low normal; Units: %; Status: F Test: MONO %; Value: 4.3; Range: 0.0-5.0; Units: %; Status: F Test: EOS %; Value: 0.4; Range: 0.0-3.0; Units: %; Status: F Test: BASO %; Value: 0.3; Range: 0.0-1.0; Units: %; Status: F Test: LARGE UNSTAINED CELL %; Value: 1.1; Range: 0.0-4.0; Units: %; Status: F Test: NEUTROPHILS #; Value: 10.6; Range: 1.8-7.7; Abnormal: Above high normal; Units: K/mm3; Status: F Test: LYMPH #; Value: 1.0; Range: 1.5-4.5; Abnormal: Below low normal; Units: K/mm3; Status: F Test: MONO #; Value: 0.5; Range: 0.0-0.8; Units: K/mm3; Status: F Test: EOS #; Value: 0.0; Range: 0.0-0.50; Units: K/mm3; Status: F Test: BASO #; Value: 0.0; Range: 0.0-0.2; Units: K/mm3; Status: F Test: LARGE UNSTAINED CELL #; Value: 0.1; Range: 0.0-0.4; Units: K/mm3; Status: F Lab Order: MED Profile; [facility] 09/28/16 16:37 Test: GLUCOSE, FASTING; Value: 132; Range: 80-110; Abnormal: Above high normal; Units: MG/DL; Status: F Test: BLOOD UREA NITROGEN; Value: 16; Range: 7-18; Units: MG/DL; Status: F Test: CREATININE FOR GFR; Value: 1.04; Range: 0.70-1.30; Units: MG/DL; Status: F Test: GLOMERULAR FILTRATION RATE; Value: > 60.0; Range: >49; Status: F Test: SODIUM LEVEL; Value: 142; Range: 136-145; Units: MEQ/L; Status: F Test: POTASSIUM SERUM; Value: 4.2; Range: 3.5-5.1; Units: MEQ/L; Status: F Test: CHLORIDE LEVEL; Value: 108; Range: 98-107; Abnormal: Above high normal; Units: MEQ/L; Status: F Test: CARBON DIOXIDE LEVEL; Value: 26; Range: 21-32; Units: MEQ/L; Status: F Test: ANION GAP; Value: 8; Range: 8-16; Units: MEQ/L; Status: F Test: CALCIUM LEVEL; Value: 9.6; Range: 8.8-10.2; Units: MG/DL; Status: F Test Note: ; Units are mL/min/1.73 m2 Chronic Kidney Disease Staging per NKF: Stage I & II GFR >=60 Normal to Mildly Decreased Stage III GFR 30-59 Moderately Decreased Stage IV GFR 15-29 Severely Decreased Stage V GFR <15 Very Little GFR Left ESRD GFR <15 on MORTGAGE LOAN SPECIALIST Lab Order: ARTERIAL BLOOD GAS; [facility] 09/28/16 18:39 Test: ABG pH (ARTERIAL); Value: 7.382; Range: 7.350-7.450; Units: UNITS; Status: F Test: ABG PARTIAL PRESSURE CO2; Value: 41.3; Range: 35.0-45.0; Units: mmHg; Status: F Test: ABG PARTIAL PRESSURE O2; Value: 88.6; Range: 75.0-100.0; Units: mmHg; Status: F Test: ABG TOTAL CO2; Value: 25.3; Range: 23.0-31.0; Units: MEQ/L; Status: F Test: ABG HCO3; Value: 24.0; Range: 22.0-26.0; Units: MEQ/L; Status: F Test: ABG BASE EXCESS; Value: -1.1; Range: -2.0-2.0; Status: F Test: ABG STANDARD HCO3; Value: 23.6; Range: 22.0-26.0; Units: MEQ/L; Status: F Test: ABG O2 SATURATION; Value: 96.6; Range: 95.0-99.0; Units: %; Status: F Radiology Order: Chest, 1 View Test: Chest, 1 View REASON FOR EXAMINATION: trauma, r/o PTX; Clinical: Trauma. Rule out pneumothorax.; ; Technique: Single portable semiupright view.; ; Findings:; Basilar atelectasis cannot be excluded. No pneumothorax identified. Mediastinum; and cardiac silhouette within normal limits. Skeletal structures are grossly; intact.; ; Impression:; Cannot exclude basilar atelectasis.; No obvious pneumothorax.; ; ; Signed by; Jake Ramírez MD 09/28/2016 05:04 P; Outcome: 17:37 CT Study completed. ck1 18:56 Decision to Hospitalize by Provider. pc 19:59 Patient left the ED. sls1 20:07 The following High Risk Discharge criteria are identified: None. Condition: unchanged. jp6 Property :Personal belongings accompany Pt. 20:08 Discharge Assessment: Patient awake, alert and oriented x 3. No cognitive and/or jp6 functional deficits noted. Patient verbalized understanding of disposition instructions. patient administered narcotics - yes. Patient was admitted to the hospital or transferred to another facility. Admission hand-off: Report called to Rob PEREZ. Signatures: Dispatcher [employer] EDMS Hany Garcia MD MD pc Scott, Debra, RN RN Negrito Blount, RN Chloe Villaseñor,RN RN ck1 Jj Lindsay Daniell, SODA DISPENSER SODA DISPENSER dd6 eMy Kelly,RN RN rs3 Maritza Chatman, RN RN sls1 Zana Muñoz,RT RT rs5 Yoselin Anderson,RN RN jp6 Chart Complete MTDD
[2016-10-01] VITALS (7 sets, daily range): BP systolic 130–148; BP diastolic 79–86
[2016-10-01] MEDS: LEVALBUTEROL 1.25 MG/0.5 ML CONCENTRATE NEB NEB SCH ×4 (01:08→20:12)
[2016-10-01 05:55] LABS: BASO % 0.6 % (0.0-1.0); EOS # 0.3 K/mm3 (0.0-0.50); EOS % 5.6 % (0.0-3.0); LARGE UNSTAINED CELL # 0.1 K/mm3 (0.0-0.4); LARGE UNSTAINED CELL % 1.5 % (0.0-4.0); LYMPH % 15.3 % (24.0-44.0); MEAN CORPUSCULAR HEMOGLOBIN 31.9 pg (27.0-33.0); MEAN CORPUSCULAR HGB CONC 33.1 g/dl (32.0-36.5); MEAN CORPUSCULAR VOLUME 96.5 fl (80.0-96.0); MONO # 0.5 K/mm3 (0.0-0.8); MONO % 7.8 % (0.0-5.0); NEUTROPHILS % 69.1 % (36.0-66.0); PLATELET COUNT, AUTOMATED 194 k/mm3 (150-450); WHITE BLOOD COUNT 5.8 K/mm3 (4.0-10.0)
[2016-10-01 06:08] LABS: ANION GAP 5 MEQ/L (8-16); BLOOD UREA NITROGEN 11 MG/DL (7-18); CALCIUM LEVEL 8.3 MG/DL (8.8-10.2); CARBON DIOXIDE LEVEL 29 MEQ/L (21-32); CHLORIDE LEVEL 108 MEQ/L (98-107); GLOMERULAR FILTRATION RATE > 60.0 (>49); GLUCOSE, FASTING 94 MG/DL (80-110); POTASSIUM SERUM 5.1 MEQ/L (3.5-5.1); SODIUM LEVEL 142 MEQ/L (136-145)
[2016-10-01] MEDS: KETOROLAC 30 MG/ML VIAL (J1885) IV SCH ×4 (06:11→23:29)
[2016-10-01] MEDS: PANTOPRAZOLE 40MG TAB (PROTONIX) PO SCH (10:03)
[2016-10-01] MEDS: VITAMIN D 1,000 INTERNATIONAL UNITS TABLET PO SCH (10:03)
[2016-10-01] MEDS: HEPARIN SOD (PORCINE) 5000 UNITS/ML VIAL SC SCH ×2 (10:03→21:55)
[2016-10-01] MEDS: MOM 30ML SUSPENSION UDC PO SCH (10:03)
[2016-10-01] MEDS: PRAVASTATIN 20 MG TAB PO SCH (10:03)
[2016-10-01] MEDS: MULTIVITAMINS/MINERALS THERAP 1 TAB PO SCH (10:03)
[2016-10-01] MEDS: DOCUSATE SODIUM 100 MG CAP PO SCH ×2 (10:03→21:55)
[2016-10-01] MEDS: CYANOCOBALAMIN 500 MCG TAB PO SCH (10:03)
[2016-10-01] MEDS: PARoxetine 10MG TABLET PO SCH (10:03)
[2016-10-01] MEDS: EZETIMIBE 10 MG TAB (ZETIA) PO SCH (10:04)
[2016-10-01] MEDS ORDERED: FUROSEMIDE 40 MG/4 ML VIAL (J1940) IV ONE (10:15)
--- NOTE | 2016-10-01 10:16 | REP ---
Chest x-ray: Two views. History: Rib fracture. Findings: Epidural catheter and EKG monitoring electrodes again overlie the chest. There is some plate-like atelectasis in the right base above the somewhat elevated right hemidiaphragm. Anterior rib fractures are again noted on the left. There is very slight blunting of the left lateral pleural angle and posterior pleural angle on today's chest x-ray. There is no evidence of pneumothorax. No infiltrate or contusion is seen. Cardiomediastinal silhouette is unchanged. Impression: Discoid atelectasis right base. Small amount of left pleural fluid. Left anterior rib fractures. Signed by Lior Marina MD 10/01/2016 08:08 P
--- NOTE | 2016-10-01 11:17 | IPN ---
DATE: 10/01/2016 Mr. Chawla is doing well with his pain control. The epidural has been decreased to 8 and he is pain free. Today, we are going to start weaning the epidural until he does have pain and supplement that with oral pain medications. His vital signs show a T-max of 98.3 with a heart rate that ranges between 73 and 76 in sinus rhythm, respiratory rate of 16 to 18 without the use of accessory muscles who is 95 to 94% saturation on room air and his blood pressure is ranging between 138/72 to 148/85. His intake and output over the past 24 hours is recorded as 1200 in and 3176 out for a negativity of 1900 mL. His weight is 108.4 kg today, which is the same as yesterday. On physical examination, his lungs show normal equal breath sounds on each side. I hear no wheezes, rhonchi or rales. Percussion note is full to the diaphragm. He has some tenderness in the lateral chest corresponding to his rib fractures. Cardiac exam is without murmurs, clicks, gallops or rubs. I cannot feel his point of maximum impulse (PMI). S1 and S2 are normal. Abdomen is soft and nontender. Bowel sounds are positive. There is no hepatomegaly. No CVA tenderness. Extremities still show pretibial edema with no calf tenderness. No differential swelling of the upper extremities. Skin is warm, dry and perfused without cyanosis or mottling including that of the nail beds and knees. Neck is supple. There is no jugular venous distention. No subcutaneous emphysema. Trachea is midline. Mouth shows his mucous membranes to be pink and moist. Lips and commissures are without lesions. There is no thrush. Eyes show his pupils to be equal and reactive. Extraocular movements intact. Sclerae nonicteric. Neurologic shows II-XII intact along with gross motor and gross sensation intact. Gait is not tested. Psychiatric showed him to be awake, alert and oriented times three with appropriate and affect and conversational. His white count today is 5.8 with hemoglobin and hematocrit 12.9 and 38.9 respectively, unchanged from yesterday with a platelet count of 194. Differential shows 69% neutrophils, 15% lymphocytes, 7% monocytes. There are no immature forms or toxic granulations. His electrolytes are normal today with a BUN and creatinine of 11 and 1.0. Glucose is 94 with a calcium of 8.3. His chest x-ray today shows his lung fully expanded to the chest wall. Costophrenic angles are sharp. There are no infiltrates. There is no posterior infiltrates on the lateral film. IMPRESSION: 1. Multiple rib fractures 2 through 6 nondisplaced on the left side. 2. Pain from rib fractures, well controlled with the epidural. 3. Splinting and atelectasis on the left side improved with pain control. 4. Hypercholesterolemia. 5. Depression. 6. Hypertension. PLAN AND DISCUSSION: As noted above, we will start to wean the epidural and supplement him with oral pain control. His kidneys are doing well and I will continue the Toradol. Since his legs show 2+ pretibial edema, I will diurese him.
[2016-10-01] MEDS: FENTANYL/BUPIVACAINE/NACL CADD 250 ML EPIDURAL SCH (21:09)
[2016-10-02] MEDS: LEVALBUTEROL 1.25 MG/0.5 ML CONCENTRATE NEB NEB SCH ×3 (02:00→13:26)
[2016-10-02 04:00] VITALS: BP 133/82
[2016-10-02] MEDS: KETOROLAC 30 MG/ML VIAL (J1885) IV SCH ×2 (05:15→11:00)
[2016-10-02 05:24] LABS: BASO % 0.4 % (0.0-1.0); EOS # 0.3 K/mm3 (0.0-0.50); EOS % 6.8 % (0.0-3.0); LARGE UNSTAINED CELL # 0.1 K/mm3 (0.0-0.4); LYMPH # 0.8 K/mm3 (1.5-4.5); LYMPH % 15.1 % (24.0-44.0); MEAN CORPUSCULAR HEMOGLOBIN 31.5 pg (27.0-33.0); MEAN CORPUSCULAR HGB CONC 33.8 g/dl (32.0-36.5); MEAN CORPUSCULAR VOLUME 93.2 fl (80.0-96.0); MONO # 0.4 K/mm3 (0.0-0.8); MONO % 7.8 % (0.0-5.0); NEUTROPHILS # 3.4 K/mm3 (1.8-7.7); NEUTROPHILS % 67.9 % (36.0-66.0); PLATELET COUNT, AUTOMATED 188 k/mm3 (150-450); RED CELL DISTRIBUTION WIDTH 12.1 % (11.5-14.5)
[2016-10-02 05:46] LABS: ANION GAP 7 MEQ/L (8-16); BLOOD UREA NITROGEN 15 MG/DL (7-18); CALCIUM LEVEL 8.7 MG/DL (8.8-10.2); CARBON DIOXIDE LEVEL 29 MEQ/L (21-32); CHLORIDE LEVEL 103 MEQ/L (98-107); CREATININE FOR GFR 1.07 MG/DL (0.70-1.30); GLOMERULAR FILTRATION RATE > 60.0 (>49); GLUCOSE, FASTING 116 MG/DL (80-110); POTASSIUM SERUM 4.7 MEQ/L (3.5-5.1); SODIUM LEVEL 139 MEQ/L (136-145)
[2016-10-02 08:00] VITALS: BP 158/85
--- NOTE | 2016-10-02 08:08 | REP ---
Clinical: Chest pain. Trauma. Technique: PA and lateral. Comparison: January 29, 2017. Findings: Discoid atelectasis in the right lower lung zone and trace left basilar atelectasis suggested. No obvious pneumothorax. Lateral view suggests a small left pleural effusion. Mediastinum and cardiac silhouette normal. Skeletal structures are stable and nondisplaced left rib fractures based on CT are not visualized by current radiographic evaluation. Impression: Lower lobe atelectasis and suspected small left pleural effusion. Signed by Jake Ramírez MD 10/02/2016 07:59 A
[2016-10-02] MEDS: HEPARIN SOD (PORCINE) 5000 UNITS/ML VIAL SC SCH ×2 (09:00→09:26)
[2016-10-02] MEDS: DOCUSATE SODIUM 100 MG CAP PO SCH (09:24)
[2016-10-02] MEDS: MOM 30ML SUSPENSION UDC PO SCH (09:24)
[2016-10-02] MEDS: CYANOCOBALAMIN 500 MCG TAB PO SCH (09:25)
[2016-10-02] MEDS: MULTIVITAMINS/MINERALS THERAP 1 TAB PO SCH (09:25)
[2016-10-02] MEDS: PRAVASTATIN 20 MG TAB PO SCH (09:25)
[2016-10-02] MEDS: PANTOPRAZOLE 40MG TAB (PROTONIX) PO SCH (09:25)
[2016-10-02] MEDS: PARoxetine 10MG TABLET PO SCH (09:25)
[2016-10-02] MEDS: EZETIMIBE 10 MG TAB (ZETIA) PO SCH (09:26)
[2016-10-02] MEDS: VITAMIN D 1,000 INTERNATIONAL UNITS TABLET PO SCH (09:26)
[2016-10-02] MEDS: PERCOCET 5MG/325MG TAB PO PRN ×2 (09:27→14:47)
[2016-10-02] MEDS ORDERED: PERCOCET PO (11:29)
[2016-10-02 12:00] VITALS: BP 160/88
[2016-10-02 15:20] VITALS: BP 160/88
--- NOTE | 2016-10-03 08:09 | DSES ---
DATE OF ADMISSION: 09/28/2016 DATE OF DISCHARGE: 10/02/2016 DISCHARGE DIAGNOSES: 1. Multiple rib fractures on the left side, two through six, nondisplaced. 2. Pain from rib fractures, controlled with epidural analgesia. 3. Splitting and atelectasis of left side, improved with pain control. 4. Hypercholesterolemia. 5. Depression. 6. Hypertension. HOSPITAL COURSE: The patient is a 61-year-old white male who was skiing on [employer] the day of admission, 09/28/2016, when he fell on his left side. He immediately felt short of breath, although that did resolve. He continued to have intense left chest pain and made his way back to [place] where he sought medical attention. His chest x-ray showed no pneumothorax and no hemothorax. It did shows rib fractures two through six nondisplaced. He was admitted to the hospital for pain control, which included an epidural catheter with epidural infusion. His pain was extraordinarily well controlled once the epidural was placed. He continued on the epidural for four days until we weaned it and converted him to oral pain medication with satisfactory, but not complete pain control. He is being discharged today on his home medications which include amlodipine 2.5 mg daily, ascorbic acid 500 mg daily, vitamin D 1000 mg daily, vitamin B12 1000 mg daily, Zetia 10 mg daily, multivitamins one daily, Paxil 30 mg daily, and pravastatin 20 mg daily. He is also being placed on Percocet 5/325 every 4 hours as needed pain. I will see him back in the office in two weeks in postoperative followup. His discharge hemoglobin and hematocrit are 13.1 and 38.8 with a discharge platelet count of 188. Electrolytes are normal on discharge. His BUN and creatinine are 15 and 1.07 with a calcium of 8.7 and a glucose of 116. Chest x-ray shows his lung fully expanded to the chest wall with sharp costophrenic angles.
== END 2016-10-02 17:50 | disposition home or self-care (01) | DRG 184 ==
LOC: M ED 15:53 → M ED INP 18:30 → M PCU 21:34
PROVIDERS: ADMIT Thoracic Surgery (Cardiothoracic Vascular Surgery); ATTEND Thoracic Surgery (Cardiothoracic Vascular Surgery)
DX: S22.42XA Multiple fractures of ribs, left side, initial encounter for closed fracture (principal); J98.11 Atelectasis; I10 Essential (primary) hypertension; F32.9 Major depressive disorder, single episode, unspecified; E78.00 Pure hypercholesterolemia, unspecified; W00.2XXA Other fall from one level to another due to ice and snow, initial encounter; Y92.828 Other wilderness area as the place of occurrence of the external cause; Y93.23 Activity, snow (alpine) (downhill) skiing, snowboarding, sledding, tobogganing and snow tubing; Y99.9 Unspecified external cause status; Z79.899 Other long term (current) drug therapy

== ENCOUNTER → 2016-10-16 | Outpatient (CLI) | payer OTHER ==
[~2016-10-16] MED LIST changes: +AMLO2.5T PO; +PAXI20TA3 PO; +PERCOCET PO; +PRAV20TA2 PO; +VITA10002 PO; +VITA100066 PO; +VITA500T88 PO; +VITMTA PO; +ZETI10TA2 PO
--- NOTE | 2016-10-16 13:03 | REP ---
Chest x-ray: Two views. History: Multiple left-sided rib fractures. Comparison chest x-ray October 02, 2016. Findings: The lungs are exposed at a relatively low inspiratory level. There is blunting of the left posterior and left lateral pleural angles consistent with small amounts of left pleural fluid. There is some plate-like atelectasis in the left base and a small zone of right base plate-like atelectasis is seen. No evidence of pneumothorax. Impression: Bibasilar plate-like atelectasis. Small left pleural effusion. Relatively low level of inspiration. Signed by Lior Marina MD 10/16/2016 01:56 P
== END | disposition home or self-care (01) ==
LOC: M SMT 09:49
PROVIDERS: ATTEND Thoracic Surgery (Cardiothoracic Vascular Surgery)
DX: S22.42XD Multiple fractures of ribs, left side, subsequent encounter for fracture with routine healing (principal); J90 Pleural effusion, not elsewhere classified; J98.11 Atelectasis; X58.XXXD Exposure to other specified factors, subsequent encounter; Y92.9 Unspecified place or not applicable; Y93.9 Activity, unspecified; Y99.9 Unspecified external cause status

== ENCOUNTER 2020-08-01 18:04 | Emergency (ER) | payer OTHER ==
[~2020-08-01] VITALS: Ht 182.9 cm; Wt 107.6 kg
[~2020-08-01 18:04] MED LIST changes: -/MOXI40TA OR; -AMLO2.5T PO; +AMLO2.5T3 PO; +AVEL1TAB2 OR; +CYAN100049 PO; +PAXI20TA29 PO; -PAXI20TA3 PO; -VITA10002 PO; +ZETI10TA16 PO; -ZETI10TA2 PO
[2020-08-01] MEDS ORDERED: LIDOCAINE W/EPINEPHRINE 1% 20ML VIAL As Ordered ONE (19:23)
[2020-08-01] MEDS ORDERED: LIDOCAINE W/EPINEPHRINE 1% 20ML VIAL SC ONE (19:30)
[2020-08-01] MEDS ORDERED: KEFL500C17 PO (19:59)
[2020-08-01] MEDS ORDERED: CEPHALEXIN 500 MG CAP PO ONE (20:00)
[2020-08-01 20:30] VITALS: BP 162/92
[2020-08-02] MEDS ORDERED: KEFL500C17 PO (02:43)
== END 2020-08-01 20:42 | disposition home or self-care (01) ==
LOC: M ED 18:04
DX: S01.01XA Laceration without foreign body of scalp, initial encounter (principal); W29.3XXA Contact with powered garden and outdoor hand tools and machinery, initial encounter; Y92.096 Garden or yard of other non-institutional residence as the place of occurrence of the external cause; Y93.H9 Activity, other involving exterior property and land maintenance, building and construction; Y99.8 Other external cause status; I10 Essential (primary) hypertension; E78.5 Hyperlipidemia, unspecified; Z87.820 Personal history of traumatic brain injury; Z79.899 Other long term (current) drug therapy

== ENCOUNTER → 2020-08-15 | Outpatient (CLI) | payer OTHER ==
[~2020-08-15] MED LIST changes: +KEFL500C17 PO
== END ==
LOC: M WUC 10:04
PROVIDERS: ATTEND Orthopaedic Surgery
DX: Z96.641 Presence of right artificial hip joint (principal); T56.891A Toxic effect of other metals, accidental (unintentional), initial encounter

== ENCOUNTER → 2021-05-16 | Outpatient (CLI) | payer OTHER ==
[~2021-05-16] MED LIST changes: +BLOOD BUILDER PO; +D31000TA2 PO; +FISH1000 PO; +PARO20TA3
== END ==
LOC: M LABSMTC 09:12
PROVIDERS: ATTEND Anesthesiology
DX: Z01.818 Encounter for other preprocedural examination (principal); Z11.52 Encounter for screening for COVID-19

== ENCOUNTER 2021-05-21 06:04 | Day surgery (SDC) | payer OTHER ==
[~2021-05-21] VITALS: Ht 182.9 cm; Wt 105.6 kg
[~2021-05-21 06:04] MED LIST changes: +LIDOCAINE 1% MDV 20ML VIAL SQ PRN
[2021-05-21] MEDS ORDERED: LR 1,000 ML IV ONE (06:05)
[2021-05-21] MEDS ORDERED: BUPIVACAINE HCL 0.25% 30ML VIAL As Ordered ONE (07:07)
[2021-05-21] MEDS ORDERED: LIDOCAINE 2% 100MG/5ML SDV (FOR ANES.) As Ordered ONE (07:19)
[2021-05-21] MEDS ORDERED: MIDAZOLAM INJ 2MG/2ML VIAL (J2250 PER 1MG) As Ordered ONE (07:19)
[2021-05-21] MEDS ORDERED: ROCURONIUM BROMIDE 50 MG/5 ML VIAL As Ordered ONE ×2 (07:19→08:54)
[2021-05-21] MEDS ORDERED: propofoL 200 MG/20 ML VIAL As Ordered ONE (07:19)
[2021-05-21] MEDS ORDERED: dexameTHASONE 4 MG/ML 1ML VIAL (J1100 PER 1MG) As Ordered ONE (07:20)
[2021-05-21] MEDS ORDERED: fentaNYL 250 MCG/5 ML INJECTION (J3010) As Ordered ONE (07:20)
[2021-05-21] MEDS ORDERED: ONDANSETRON 4MG/2ML VIAL As Ordered ONE (07:20)
[2021-05-21] MEDS ORDERED: GLYCOPYRROLATE INJ 0.2 MG/ML 2 ML VIAL As Ordered ONE (07:43)
[2021-05-21] MEDS ORDERED: ACETAMINOPHEN 1000MG 100ML IV BTL (OFIRMEV) (J0131 PER 10MG) As Ordered ONE (08:51)
[2021-05-21] MEDS ORDERED: hydrALAZINE 20MG/ML 1ML VIAL (J0360 PER 20MG) As Ordered ONE (08:51)
[2021-05-21] MEDS ORDERED: SUGAMMADEX SODIUM 500 MG/5 ML VIAL (BRIDION) As Ordered ONE (09:51)
[2021-05-21] MEDS ORDERED: KETOROLAC 60MG 2ML VIAL As Ordered ONE (09:53)
[2021-05-21] MEDS ORDERED: propofoL 500 MG/50 ML VIAL As Ordered ONE (10:28)
[2021-05-21] MEDS ORDERED: HYDROMORPHONE HCL 0.5 MG/ 0.5 ML SYRINGE (J1170 PER 1) IV PRN (10:35)
[2021-05-21] MEDS ORDERED: IBUPROFEN 400MG TAB PO PRN (10:35)
[2021-05-21] MEDS ORDERED: METOCLOPRAMIDE INJ 10MG/2ML VIAL (J2765 PER 1) IV PRN (10:35)
[2021-05-21] MEDS ORDERED: LR 1,000 ML IV SCH (10:35)
[2021-05-21] MEDS ORDERED: fentaNYL 100 MCG/2 ML INJECTION (J3010) IV PRN (10:35)
[2021-05-21] MEDS ORDERED: ONDANSETRON 4MG/2ML VIAL IV PRN (10:35)
[2021-05-21] MEDS ORDERED: ACETAMINOPHEN TAB 650MG DOSE (2X325MG) PO PRN (10:35)
[2021-05-21] MEDS ORDERED: oxyCODONE 5MG TAB PO PRN (10:35)
[2021-05-21] MEDS ORDERED: NORCO, ANEXSIA 5/325MG TABLET (HYDROcodone/ACETAMINOPHEN) PO PRN (10:40)
[2021-05-21 12:05] VITALS: BP 140/78
--- NOTE | 2021-05-23 07:35 | RO ---
OPERATIVE NOTE DATE OF OPERATION: 05/21/2021 PREOPERATIVE DIAGNOSIS: Incarcerated ventral incisional hernia. POSTOPERATIVE DIAGNOSIS: Incarcerated ventral incisional hernia. PROCEDURES PERFORMED: Robotic-assisted laparoscopic repair of incarcerated ventral incisional hernia with mesh. The mesh utilized was [employer] Parietex reference code [id number] and lot number [id number]. SURGEON: Germán Dias MD COLLAR SETTER: TRACIE FRANKLIN. Apolonia's assistance was essential for management of the da Jeanine Xi robot. She assisted in placement of the trocars, passage of sutures and the mesh, docking and undocking, and suturing of the incisions. ANESTHESIA: General INDICATIONS FOR THE PROCEDURE: The patient is a 65-year-old man who has had several surgical procedures for a midline umbilical or periumbilical hernia. He now has noticed recurrence of a bulge just above the umbilicus and is here for a robotic-assisted repair of his incarcerated ventral incisional hernia. OPERATIVE PROCEDURE: The patient was brought to the operating room and placed on the table in a supine position. He was placed under general endotracheal anesthesia. The patient's abdomen was prepped and draped in a sterile fashion. Then 0.25% Marcaine was infiltrated at each of the trocar sites as needed. A short transverse incision was made in the left upper quadrant and a Veress needle was inserted. After a positive hanging drop test, the abdomen was insufflated with carbon dioxide. An 8-mm trocar was placed in this site. Initial examination showed no evidence of Veress needle or trocar injury. The patient was tilted to an approximately 10 degrees Trendelenburg position and rolled slightly to the right. A second trocar was placed in the lateral abdomen at about the level of the umbilicus and a third port was placed in the left lower quadrant. The patient cart of the da Jeanine Xi robot was brought into position and the endoscopic arm was docked to the middle port. Targeting took place on the area of the hernia. The additional robotic arms were then docked. A cauterizing scissors was inserted in the left upper quadrant and a fenestrated bipolar grasper was placed in the left lower quadrant. I then moved to the control console to proceed with the operation. Examination showed that there was omentum adhered into his hernia. There was a piece of mesh evident at the left lateral aspect of the hernia defect where the mesh appeared to be balled up or folded up into a small mass. Interestingly, a second piece of mesh was identified, perhaps 5 cm lower down along the abdominal wall along the midline. Initially the omentum was reduced into the abdomen by dividing a few adhesions that entrapped the omentum. I then created a peritoneal flap beginning approximately 5 cm to the left of the midline. The peritoneum was incised and the peritoneum and the overlying preperitoneal fat were then peeled away from the abdominal wall using a combination of blunt and cautery dissection. The hernia sac was inverted. Some of the mesh along the left lateral border of the hernia defect was excised to allow later closure of the fascial defect. These fragments of mesh were later removed and discarded. The dissection of the peritoneal flap continued approximately 5 cm to the right of the midline. Inspection of the fascial defect showed an approximately 2 to 2.5 cm roughly round defect. After the excision of a portion of the balled up mesh, it was possible to close this transversely with a running suture of 1-0 Stratafix. A 9-cm round Parietex mesh was then selected. This was inserted into the abdomen and placed into the preperitoneal space. This was centered over the sutured fascial defect. The mesh was then securely sutured in place using 2-0 absorbable V-Loc sutures. The transverse and longitudinal midlines were sutured and a circumferential suture was completed at the edge of the mesh as well. The peritoneal flap was then closed with a running suture of 2-0 V-Loc. A defect in the peritoneum near the center was closed with a suture of 2-0 Vicryl. This nicely covered the mesh completely. The robotic instruments were then withdrawn. The robot was undocked and removed. Apolonia Mullins then proceeded to deflate the abdomen, removed the trocars, and closed the incisions with buried sutures of 4-0 Vicryl and Steri-Strips. Light dressings were applied. The patient tolerated the procedure well without apparent complications. He was awakened in the operating room, extubated, and moved to the recovery room in stable condition.
== END 2021-05-21 12:10 | disposition home or self-care (01) ==
LOC: M SDC 06:04
PROVIDERS: ATTEND Surgery
DX: K43.2 Incisional hernia without obstruction or gangrene (principal); K66.0 Peritoneal adhesions (postprocedural) (postinfection); I10 Essential (primary) hypertension; E78.00 Pure hypercholesterolemia, unspecified; F32.9 Major depressive disorder, single episode, unspecified; M19.90 Unspecified osteoarthritis, unspecified site; G47.30 Sleep apnea, unspecified; Z72.0 Tobacco use; Z79.899 Other long term (current) drug therapy
CPT/HCPCS: 49657; C1781; J0131; J0360; J1100; J1885; J2250; J2405; J3010; S2900